=== PATIENT | female | born 1995 | race Caucasian/White ===

== ENCOUNTER 2016-07-13 19:52 | Emergency (ER) | payer BC ==
[~2016-07-13] VITALS: Ht 152.4 cm; Wt 55.2 kg
[~2016-07-13 19:52] MED LIST: BACT800T5 PO; HYDR-3533 PO; IBUP-232 PO; TAMS5CAP PO; ZOFR4TAB3 SL
[2016-07-13 23:35] VITALS: BP 132/93; PULSE 93; RESP 20; TEMP 97.7; O2SAT 98
--- NOTE | 2016-07-13 23:56 | PD ---
HPI Chief Complaint: Abdominal Pain Time Seen by Provider: 23:53 Travel History International Travel<30 days: No Contact w/Intl Traveler<30days: No Traveled to known affect area: No History of Present Illness HPI The patient is a 20-year-old female complains of bilateral flank pain, left greater than right along with nausea and vomiting for 2 days. She does have a fever at home. She states her urine smells foul and is cloudy. She has both a history of kidney stones and kidney infections. She states she cannot be she had a recent home test that was negative and her last menstrual period was normal 3 weeks ago. She does not have a local primary care physician, she just moved from [place]. [facility] Past Medical History Diminished Hearing: No Medical other: Yes (kidney stones) Tetanus Vaccination: Unknown Influenza Vaccination: No ?: Not LMP: 07/13/16 : 0 Social History Alcohol Use: No Tobacco Use: Yes (1 ppd) Substance Use: Yes Allergies-Medications (Allergen,Severity, Reaction): Coded Allergies: No Known Allergies (Unverified , 07/13/16) Reported Meds & Prescriptions Reported Meds & Active Scripts Active Phenergan (Promethazine HCl) 25 Mg Tab 25 Mg PO Q6H PRN Macrobid (Nitrofurantoin Monoh/Nitrofur Macro) 100 Mg Cap 100 Mg PO BID 10 Days Review of Systems Except as stated in HPI: all other systems reviewed are Neg Physical Exam Narrative GENERAL: The patient is alert, oriented 3 in moderate apparent distress with her left flank pain. Her vital signs show pulse 93 with blood pressure 132/93 but otherwise normal. SKIN: Focused skin assessment warm/dry. HEAD: Atraumatic. Normocephalic. EYES: Pupils equal and round. No scleral icterus. No injection or drainage. ENT: No nasal bleeding or discharge. Mucous membranes pink and moist. NECK: Trachea midline. No JVD. CARDIOVASCULAR: Regular rate and rhythm. No murmur appreciated. RESPIRATORY: No accessory muscle use. Clear to auscultation. Breath sounds equal bilaterally. GASTROINTESTINAL: Abdomen soft, with tenderness over both flanks, left greater than right and also some discomfort over the suprapubic area midline to direct palpation, nondistended. Hepatic and splenic margins not palpable. No guarding or rebound is present. MUSCULOSKELETAL: No obvious deformities. No clubbing. No cyanosis. No edema. NEUROLOGICAL: Awake and alert. No obvious cranial nerve deficits. Motor grossly within normal limits. Normal speech. PSYCHIATRIC: Appropriate mood and affect; insight and judgment normal. Data Data Last Documented VS Vital Signs Date Time Temp Pulse Resp B/P Pulse Ox O2 Delivery O2 Flow Rate FiO2 07/13/16 23:38 20 07/13/16 23:35 97.7 93 132/93 98 Orders Complete Blood Count With Diff (07/13/16 23:57) Comprehensive Metabolic Panel (07/13/16 23:57) Lactic Acid Sepsis Protocol (07/13/16 23:57) Urinalysis - C+S If Indicated (07/13/16 23:57) Blood Culture (07/13/16 23:57) Ecg Monitoring (07/13/16:57) Iv Access Insert/Monitor (07/13/16 23:57) Oximetry (07/13/16 23:57) Oxygen Administration (07/13/16 23:57) Ondansetron Inj (Zofran Inj) (07/14/16 00:00) Sodium Chlor 0.9% 1000 Ml Inj (Ns 1000 M (07/13/16 23:57) Sodium Chlor 0.9% 1000 Ml Inj (Ns 1000 M (07/13/16 23:57) Urine Culture (07/14/16 00:00) Ceftriaxone Inj (Rocephin Inj) (07/14/16 01:15) Ketorolac Inj (Toradol Inj) (07/14/16 01:15) Nitrofurantoin Monohyd Macrocr (Macrobid (07/14/16 01:15) Ondansetron Inj (Zofran Inj) (07/14/16 01:30) Labs Laboratory Tests Test 07/14/16 07/14/16 00:00 00:25 Urine Collection Type CLEAN CATCH Urine Color YELLOW Urine Turbidity SLIGHT Urine pH 6.0 Urine Specific [place] 1.006 Urine Protein NEG mg/dL Urine Glucose (UA) NEG mg/dL Urine Ketones NEG mg/dL Urine Occult Blood NEG Urine Nitrite NEG Urine Bilirubin NEG Urine Leukocyte Esterase TRACE Urine WBC 3-5 /hpf Urine Squamous Epithelial 0-5 /hpf Cells Urine Bacteria MANY /hpf Urine Mucus OCC /lpf Microscopic Urinalysis Comment CULTURE INDICATED White Blood Count 10.8 TH/MM3 Red Blood Count 4.78 MIL/MM3 Hemoglobin 13.9 GM/DL Hematocrit 40.8 % Mean Corpuscular Volume 85.5 FL Mean Corpuscular Hemoglobin 29.1 PG Mean Corpuscular Hemoglobin 34.1 % Concent Red Cell Distribution Width 12.6 % Platelet Count 235 TH/MM3 Mean Platelet Volume 8.4 FL Neutrophils (%) (Auto) 65.4 % Lymphocytes (%) (Auto) 19.6 % Monocytes (%) (Auto) 11.3 % Eosinophils (%) (Auto) 1.0 % Basophils (%) (Auto) 2.7 % Neutrophils # (Auto) 7.1 TH/MM3 Lymphocytes # (Auto) 2.1 TH/MM3 Monocytes # (Auto) 1.2 TH/MM3 Eosinophils # (Auto) 0.1 TH/MM3 Basophils # (Auto) 0.3 TH/MM3 CBC Comment DIFF FINAL Differential Comment MDM Medical Decision Making Medical Screen Exam Complete: Yes Emergency Medical Condition: Yes Medical Record Reviewed: Yes Interpretation(s) The CBC is normal. The urine shows trace leukocyte Estrace, negative blood and many bacteria and culture is indicated. There are 3-5 white cells present. Differential Diagnosis Urinary tract infection, kidney stones, gastritis, dehydration, electrolyte disorder, renal insufficiency Narrative Course The patient appears to have a pyelonephritis. This does not appear to be a kidney stone, there is no blood in the urine and she has bilateral flank pain. Sepsis Criteria SIRS Criteria (2 or more): Heart rate over 90 Diagnosis Primary Impression: Pyelonephritis Additional Instructions: As we discussed, it is important to increase your fluid intake to establish a good urine flow through your kidneys. It is hard to fight a urine infection unless you are very well-hydrated. Med/Other Pt SpecificInfo: Prescription(s) given Scripts Promethazine (Phenergan)25 Mg Tab25 Mg PO Q6H PRN (Nausea/Vomiting) #30 TAB Ref 0 Prov:Kemal Madsen MD 07/14/16 Nitrofurantoin Monohydrate Macrocrystals (Macrobid)100 Mg [id number] Mg PO BID 10 Days Ref 0 Prov:Kemal Madsen MD 07/14/16 Disposition: 01 DISCHARGE HOME Condition: Stable Kemal Madsen MD Jul 13, 2016 23:56
[2016-07-13] MEDS ORDERED: SODIUM CHLOR 0.9% 1000 ML INJ 800 ML IV ONE (23:57)
[2016-07-13] MEDS ORDERED: SODIUM CHLOR 0.9% 1000 ML INJ 1,000 ML IV ONE (23:57)
[2016-07-14] VITALS: BP 115/64; PULSE 88; RESP 20; O2SAT 99
[2016-07-14 00:27] LABS: BLOOD, URINE NEG (NEG); GLUCOSE,URINE NEG (NEG); KETONE, URINE NEG (NEG); NITRITE,URINE NEG (NEG)
[2016-07-14 00:44] LABS: METHOD OF COLLECTION CLEAN CATCH; URINE COLOR YELLOW (YELLW/STRAW)
[2016-07-14 00:45] LABS: BACTERIA, URINE MANY /hpf; COMMENT (UR) CULTURE INDICATED; CULTURE IF INDICATED CULTURE INDICATED; MUCUS URINE OCC /lpf (OCC); SQUAMOUS EPITHELIAL CELL URINE 0-5 /hpf (0-5)
[2016-07-14 00:53] LABS: AUTOMATED NEUTROPHIL # 7.1 TH/MM3 (1.8-7.7); BASOPHIL # 0.3 TH/MM3 (0-0.2); BASOPHIL % 2.7 % (0.0-2.0); EOSINOPHIL # 0.1 TH/MM3 (0-0.4); HEMATOCRIT 40.8 % (35.0-46.0); HEMO FLAGS DIFF FINAL; LYMPH % 19.6 % (9.0-44.0); LYMPHOCYTE # 2.1 TH/MM3 (1.0-4.8); MEAN CELL VOLUME 85.5 FL (80.0-100.0); MEAN CORPUSCULAR HEMOGLOBIN 29.1 PG (27.0-34.0); MEAN CORPUSCULAR HGB CONC 34.1 % (32.0-36.0); MONO % 11.3 % (0.0-8.0); NEUT % 65.4 % (16.0-70.0); PLATELET COUNT 235 TH/MM3 (150-450); RED BLOOD COUNT 4.78 MIL/MM3 (4.00-5.30); RED CELL DISTRIBUTION WIDTH 12.6 % (11.6-17.2); WHITE BLOOD COUNT 10.8 TH/MM3 (4.0-11.0)
[2016-07-14] MEDS ORDERED: MACR100C2 PO (01:08)
[2016-07-14] MEDS ORDERED: NITROFURANTOIN MONOHYD MACROCR 100 MG CAP PO ONE (01:15)
[2016-07-14] MEDS ORDERED: cefTRIAXone INJ 1,000 MG in SODIUM CHLORIDE 0.9% INJ 100 ML IV ONE (01:15)
[2016-07-14] MEDS ORDERED: KETOROLAC TROMETHAMINE 60 MG/2 ML (IM) VIAL IVP ONE (01:15)
[2016-07-14] MEDS ORDERED: PROM25TA5 PO (01:18)
[2016-07-14 01:30] VITALS: BP 119/76; PULSE 81; RESP 20; O2SAT 98
[2016-07-14] MEDS ORDERED: ONDANSETRON HCL 4 MG/2 ML VIAL IV ONE ×2 (01:30)
[2016-07-14 02:50] VITALS: BP 121/76
== END 2016-07-14 02:50 | disposition home or self-care (01) ==
LOC: PHED 19:52
DX: N12 Tubulo-interstitial nephritis, not specified as acute or chronic (principal); Z87.442 Personal history of urinary calculi; F17.210 Nicotine dependence, cigarettes, uncomplicated; B96.20 Unspecified Escherichia coli [E. coli] as the cause of diseases classified elsewhere
CPT/HCPCS: 81001; 85025; 87040; 87077; 87086; 87186; 96374; 96375; 96376; 99284; J0696; J1885; J2405; J7030

== ENCOUNTER 2017-03-01 03:27 | Emergency (ER) | payer BC ==
[~2017-03-01] VITALS: Ht 152.4 cm; Wt 63.4 kg
[~2017-03-01 03:27] MED LIST changes: -BACT800T5 PO; -HYDR-3533 PO; -IBUP-232 PO; +MACR100C2 PO; +PROM25TA5 PO; -TAMS5CAP PO; -ZOFR4TAB3 SL
[2017-03-01 03:36] VITALS: BP 134/67; PULSE 90; RESP 18; TEMP 97.8; O2SAT 99
[2017-03-01] MEDS ORDERED: BUPR8SUB SL (03:48)
[2017-03-01] MEDS ORDERED: PRENTAB7 PO (03:48)
[2017-03-01 04:03] LABS: BLOOD, URINE LARGE (NEG); GLUCOSE,URINE NEG (NEG); KETONE, URINE NEG (NEG); NITRITE,URINE POS (NEG); PH, URINE 6.5 (5.0-8.5)
[2017-03-01 04:18] LABS: METHOD OF COLLECTION CLEAN CATCH; URINE COLOR YELLOW (YELLW/STRAW)
[2017-03-01 04:19] LABS: WBC, URINE INNUM /hpf (0-5)
[2017-03-01 04:20] LABS: BACTERIA, URINE FEW /hpf; COMMENT (UR) CULTURE INDICATED; CULTURE IF INDICATED CULTURE INDICATED; SQUAMOUS EPITHELIAL CELL URINE 0-2 /hpf (0-5)
--- NOTE | 2017-03-01 04:29 | PD ---
HPI Chief Complaint: Related Problem Time Seen by Provider: 03:46 Travel History International Travel<30 days: No Contact w/Intl Traveler<30days: No Traveled to known affect area: No History of Present Illness HPI 21 year-old female presents to the emergency department for complaint of steady lower abdominal pain primarily left sided and left flank pain since around 7 PM this evening. Patient reports she is 1 para 0 AB 0. Patient is under the care of Dr. London. Patient was just seen by her EAR NOSE AND THROAT SPECIALIST 1 week ago at which time they did a catheter specimen for urine and she was told that she needed to have an outpatient culture done and to be started on antibiotic but they were waiting for the culture result as she probably had a urinary tract infection. Patient denies any abnormal vaginal discharge or abnormal vaginal bleeding. Patient has had an ultrasound by her EAR NOSE AND THROAT SPECIALIST and reportedly the has been normal. Patient has been told she is approximately 27 weeks . Last period was 06/26/16. Patient rates her pain 5/10. PFSH Past Medical History Narrative Medical prior substance use; tobacco use; lmp: 06/26/16 Medical History: Denies Significant Hx Diminished Hearing: No Immunizations Current: No Tetanus Vaccination: < 5 Years Influenza Vaccination: No ?: LMP: 06-26-16 APPROXIMATELY PER PT : 1 Para: 0 Past Surgical History Surgical History: No Previous Surgery Social History Alcohol Use: No Tobacco Use: Yes (2-3 PER DAY) Substance Use: Yes Allergies-Medications (Allergen,Severity, Reaction): Coded Allergies: No Known Allergies (Unverified Adverse Reaction, Unknown, 03/01/17) Reported Meds & Prescriptions Reported Meds & Active Scripts Active Reported Buprenorphine (Buprenorphine HCl) 8 Mg Subl 8 Mg SL DAILY Vitamins Tablet (Pnv No.95/Ferrous Fum/Folic AC) 28 Mg Iron-800 Mcg Tablet 1 Tab PO DAILY Review of Systems Except as stated in HPI: all other systems reviewed are Neg General / Constitutional: No: Fever, Chills HENT: No: Congestion Cardiovascular: No: Chest Pain or Discomfort Respiratory: No: Shortness of Breath Gastrointestinal: Positive: Abdominal Pain Genitourinary: Positive: Flank Pain, No: Pelvic Pain, Discharge, Vaginal Bleeding Musculoskeletal: No: Myalgias, Arthralgias Neurologic: No: Weakness Psychiatric: No: Anxiety Hematologic/Lymphatic: No: Lymph Node Enlargement Physical Exam Narrative GENERAL: Well-developed well-nourished female in no acute distress no respiratory distress SKIN: Warm and dry. HEAD: Normocephalic. EYES: No scleral icterus. No injection or drainage. NECK: Supple, trachea midline. No JVD or lymphadenopathy. CARDIOVASCULAR: Regular rate and rhythm without murmurs, gallops, or rubs. RESPIRATORY: Breath sounds equal bilaterally. No accessory muscle use. GASTROINTESTINAL: Abdomen soft, non-tender, nondistended. Fundal height one fingerbreadth above the umbilicus. Pelvic exam: External exam no induration redness or ulceration; speculum exam cervical os is closed no blood no clots no tissue noted; bimanual exam cervical os is closed patient notes increased uterine discomfort on bimanual exam. MUSCULOSKELETAL: No cyanosis, or edema. BACK: Nontender without obvious deformity. No CVA tenderness. Data Data Last Documented VS Vital Signs Date Time Temp Pulse Resp B/P (MAP) Pulse Ox O2 Delivery O2 Flow Rate FiO2 03/01/17 04:54 98.5 81 15 133/75 (94) 100 Room Air Orders Orders Urinalysis - C+S If Indicated (03/01/17 03:46) Urine Culture (03/01/17 03:55) Acetaminophen (Tylenol) (03/01/17 04:45) Cephalexin (Keflex) (03/01/17 04:45) Diet Npo Except Meds (03/01/17 Breakfast) ^ Saline Lock (03/01/17 05:17) Complete Blood Count With Diff (03/01/17 05:17) Complete Rh (03/01/17 05:17) Basic Metabolic Panel (Bmp) (03/01/17 05:17) Labs Laboratory Tests Test 03/01/17 03:55 Urine Collection Type CLEAN CATCH Urine Color YELLOW Urine Turbidity CLOUDY Urine pH 6.5 Urine Specific [place] 1.015 Urine Protein 100 mg/dL Urine Glucose (UA) NEG mg/dL Urine Ketones NEG mg/dL Urine Occult Blood LARGE Urine Nitrite POS Urine Bilirubin NEG Urine Leukocyte Esterase MOD Urine WBC INNUM /hpf Urine WBC Clumps FEW Urine Squamous Epithelial Cells 0-2 /hpf Urine Bacteria FEW /hpf Microscopic Urinalysis Comment CULTURE INDICATED MDM Medical Decision Making Medical Screen Exam Complete: Yes Emergency Medical Condition: Yes Medical Record Reviewed: Yes Interpretation(s) Urinalysis: Positive leukocyte Estrace positive nitrites positive white blood cells clumped white blood cells bacteria cultures indicated Differential Diagnosis Premature labor UTI broad ligament pain Narrative Course Urine specimen collected bedside ultrasound identifies an intrauterine with good heart beat of 148 Urinalysis: Positive for nitrites white blood cells clumped and bacteria cultures indicated; will administer first dose of antibiotic keflex and for pain acetaminophen; o/w will be kept npo except for medications discussed patient with OB ED re: monitoring Patient informed that she will be sent by ambulance for monitoring @ 05:50 patient has decided to leave AMA; AMA: The risks of leaving against medical advice without further evaluation treatment were discussed with the patient. These risks include cardiac dysfunction, cardiac dysrhythmia, possible heart attack, possible stroke, injury or . The patient indicated understanding of these risks and appeared to have the capacity to make this decision. Patient is aware ambulance is here to transport her to [facility] ED at this time and still refuses transport for monitoring and further evaluation. Physician Communication Physician Communication discussed with Dr Kelsey --will accept for monitoring by ambulance to [facility] OB ED Diagnosis Primary Impression: Abdominal pain affecting Additional Impressions: UTI (urinary tract infection) Qualified Codes: Z3A.27 - 27 weeks gestation of Left against medical advice Disposition: 07 AGAINST MEDICAL ADVICE Condition: Stable Iesha Kidd MD Mar 01, 2017 04:29
[2017-03-01] MEDS ORDERED: CEPHALEXIN MONOHYDRATE 500 MG CAP PO ONE (04:45)
[2017-03-01] MEDS ORDERED: ACETAMINOPHEN 325 MG TAB PO ONE (04:45)
[2017-03-01 04:54] VITALS: BP 133/75; PULSE 81; RESP 15; TEMP 98.5; O2SAT 100
== END 2017-03-01 06:08 | disposition left against medical advice (07) ==
LOC: PHED 03:27
DX: O23.42 Unspecified infection of urinary tract in pregnancy, second trimester (principal); B96.20 Unspecified Escherichia coli [E. coli] as the cause of diseases classified elsewhere; Z3A.27 27 weeks gestation of pregnancy
CPT/HCPCS: 81001; 87077; 87086; 87186; 99283

== ENCOUNTER 2017-05-15 08:37 | Inpatient (IN) | payer BC ==
[~2017-05-15] VITALS: Ht 152.4 cm; Wt 68.0 kg
[~2017-05-15 08:37] MED LIST changes: +BUPR8SUB SL; -MACR100C2 PO; +PRENTAB7 PO; -PROM25TA5 PO
[2017-05-15] MEDS ORDERED: BUPR8SUB SL (09:10)
--- NOTE | 2017-05-15 10:06 | PD ---
HPI Chief Complaint vaginal bleeding 37 weeks and 5 days Date Seen: May 15, 2017 Time Seen: 09:30 Travel History International Travel<30 Days: No Contact w/Intl Traveler<30Days: No Known Affected Area: No History of Present Illness HPI Pt is a 21 yo at 37 weeks and [address] London. EDC 2- Pt states she was woken up this morning with vaginal bleeding. Denies any abdominal pain. Active bleeding Pt states she has low-lying placenta earlier in the but was told had resolved and there was no contraindication to vaginal delivery. Denies recent SI. She denies any bleeding elsewhere. Pt is in recovery on SUBOTEX. Weeks Gestation: 37 Para: 0 : 1 History Past Medical History Narrative Medical history of substance abuse, in recovery, on Subotex Obstetric History Obstetric History Primigravida Past Surgical History Surgical History: No Previous Surgery Family History Family History: Negative Social History Alcohol Use: No Tobacco Use: No Substance Abuse: No (on Subotex) Allergies-Medications (Allergen,Severity, Reaction): Coded Allergies: No Known Allergies (Unverified Adverse Reaction, Unknown, 03/01/17) Home Meds Reported Medications Buprenorphine (Buprenorphine) 8 Mg Subl, 8 MG SL, TAB.SL 05/15/17 Buprenorphine (Buprenorphine) 8 Mg Subl, 8 MG SL DAILY, TAB.SL 03/01/17 Pnv No.95/Ferrous Fum/Folic AC ( Vitamins Tablet) 28 Mg Iron-800 Mcg Tablet, 1 TAB PO DAILY 03/01/17 Review of Systems Except as stated in HPI: all other systems reviewed are Neg Physical Exam Narrative GENERAL: Well-nourished, well-developed patient. SKIN: Warm and dry. HEAD: Normocephalic and atraumatic. EYES: No scleral icterus. No injection or drainage. ENT: No nasal drainage noted. Mucous membranes pink. Airway patent. NECK: Supple, trachea midline. No JVD. CARDIOVASCULAR: Regular rate and rhythm without murmurs, gallops, or rubs. RESPIRATORY: Breath sounds equal bilaterally. No accessory muscle use. BREASTS: Bilateral exam showed no masses , no retractions, no nipple discharge. ABDOMEN/GI: Abdomen soft, NON TENDER, bowel sounds present, no rebound, no guarding Gravid to [37] weeks size Fundal Height: [-] GENITOURINARY: External Genitalia: intact and normal in appearance BUS glands: [wnl] Cervix: [soft] Dilatation: [closed] SSE: dark blood pool in posterior fornix, no ongoing blood from os. Effacement: [uneffaced] Station: [0] Presentation: [vertex] Membranes: [intact] Uterine Contractions: [2-3 minutes] FHT's: Category: [1] Baseline: [130s] Reactive: [-] Variability: [moderate] Decels: [none] EXTREMITIES: No cyanosis or edema. BACK: Nontender without obvious deformity. No CVA tenderness. NEUROLOGICAL: Awake and alert. Motor and sensory grossly within normal limits. Five out of 5 muscle strength in all muscle groups. Normal speech. Data Data Vital Signs Reviewed: Yes Orders Orders Complete Blood Count With Diff (05/15/17 08:58) Ob Poc Ultrasound (05/15/17 ) Us Ob Limited (05/15/17 ) Vascular Access Team Consult/P PRN (05/15/17 09:51) Vascular Poc Ultrasound (05/15/17 ) MDM Plan Pt is a 21 yo at 37 weeks and 4 days. Pt presents with 3rd trimester bleeding. Denies any abdominal pain. Active movements. Vaginal bleeding confirmed and cervix evacuated on SSE. SVE confirms cervix closed Ultrasound ordered. Check CBC US wnl, no previa, no retroplacental clot, BPP 8/8. status reassuring Bleeding resolved. D/W Dr London. Will admit for observation. Diagnosis Diagnosis: Primary Impression: 37 weeks gestation of Additional Impression: Antepartum bleeding, third trimester Grabiel Monroe MD May 15, 2017 10:05
--- NOTE | 2017-05-15 10:24 | HHI.HP ---
HPI Chief Complaint 37 weeks and 5 days Vaginal bleed Date Seen: May 15, 2017 Time Seen: 06:30 Travel History International Travel<30 Days: No Contact w/Intl Traveler<30Days: No Known Affected Area: No History of Present Illness HPI Pt is a 21 yo at 37 weeks and [address] London. EDC 06-01-2017 Pt states she was woken up this morning with vaginal bleeding. Denies any abdominal pain. Active bleeding Pt states she has low-lying placenta earlier in the but was told had resolved and there was no contraindication to vaginal delivery. Denies recent SI. She denies any bleeding elsewhere. Pt is in recovery on SUBOTEX. Ultrasound wnl, BPP 8/, JEANNE 16. No retroplacental hematoma, or previa. Bleeding has resolved , but pt noted to have contractions about every 3 minutes. Pt has no abdominal pain. Weeks Gestation: 37 Para: 0 : 1 History Past Medical History Narrative Medical h/o substance abuse, in recovery. On Subotex Obstetric History Obstetric History primigravida Past Surgical History Surgical History: No Previous Surgery Family History Family History: Negative Social History Alcohol Use: No Tobacco Use: Yes Substance Abuse: No (on Subotex) Allergies-Medications (Allergen,Severity, Reaction): Coded Allergies: No Known Allergies (Unverified Adverse Reaction, Unknown, 03/01/17) Home Meds Reported Medications Buprenorphine (Buprenorphine) 8 Mg Subl, 8 MG SL, TAB.SL 05/15/17 Buprenorphine (Buprenorphine) 8 Mg Subl, 8 MG SL DAILY, TAB.SL 03/01/17 Pnv No.95/Ferrous Fum/Folic AC ( Vitamins Tablet) 28 Mg Iron-800 Mcg Tablet, 1 TAB PO DAILY 03/01/17 Review of Systems Except as stated in HPI: all other systems reviewed are Neg Physical Exam Narrative GENERAL: Well-nourished, well-developed patient. SKIN: Warm and dry. HEAD: Normocephalic and atraumatic. EYES: No scleral icterus. No injection or drainage. ENT: No nasal drainage noted. Mucous membranes pink. Airway patent. NECK: Supple, trachea midline. No JVD. CARDIOVASCULAR: Regular rate and rhythm without murmurs, gallops, or rubs. RESPIRATORY: Breath sounds equal bilaterally. No accessory muscle use. BREASTS: Bilateral exam showed no masses , no retractions, no nipple discharge. ABDOMEN/GI: Abdomen soft, non-tender, bowel sounds present, no rebound, no guarding Gravid to [37] weeks size Fundal Height: [-] GENITOURINARY: External Genitalia: intact and normal in appearance BUS glands: [wnl] Cervix: [soft] Dilatation: [closed] Effacement: [uneffaced] Station: [-2] Presentation: [-] Membranes: [intact o] Uterine Contractions: [2-3 minutes] FHT's: Category: [1] Baseline: [130s] Reactive: [-] Variability: [moderate] Decels: [none] EXTREMITIES: No cyanosis or edema. BACK: Nontender without obvious deformity. No CVA tenderness. NEUROLOGICAL: Awake and alert. Motor and sensory grossly within normal limits. Five out of 5 muscle strength in all muscle groups. Normal speech. Caprini VTE Risk Assessment Caprini VTE Risk Assessment: No/Low Risk (score <= 1) Caprini Risk Assessment Model Point Value = 1 Point Value = 2 Point Value = 3 Point Value = 5 Age 41-60 Minor surgery BMI > 25 kg/m2 Swollen legs Varicose veins or History of unexplained or recurrent spontaneous Oral contraceptives or hormone replacement Sepsis (< 1 month) Serious lung disease, including pneumonia (< 1 month) Abnormal pulmonary function Acute myocardial infarction Congestive heart failure (< 1 month) History of inflammatory bowel disease Medical patient at bed rest Age 61-74 Arthroscopic surgery Major open surgery (> 45 min) Laparoscopic surgery (> 45 min) Malignancy Confined to bed (> 72 hours) Immobilizing plaster cast Central venous access Age >= 75 History of VTE Family history of VTE Factor V Leiden Prothrombin [id number] Lupus anticoagulant Anticardiolipin antibodies Elevated serum homocysteine Heparin-induced thrombocytopenia Other congenital or acquired thrombophilia Stroke (< 1 month) Elective arthroplasty Hip, pelvis, or leg fracture Acute spinal cord injury (< 1 month) Prophylaxis Regimen Total Risk Factor Score Risk Level Prophylaxis Regimen 0-1 Low Early ambulation 2 Moderate Order ONE of the following: *Sequential Compression Device (SCD) *Heparin 5000 units SQ BID 3-4 Higher Order ONE of the following medications: *Heparin 5000 units SQ TID *Enoxaparin/Lovenox 40 mg SQ daily (WT < 150 kg, CrCl > 30 mL/min) *Enoxaparin/Lovenox 30 mg SQ daily (WT < 150 kg, CrCl > 10-29 mL/min) *Enoxaparin/Lovenox 30 mg SQ BID (WT < 150 kg, CrCl > 30 mL/min) AND/OR *Sequential Compression Device (SCD) 5 or more Highest Order ONE of the following medications: *Heparin 5000 units SQ TID (Preferred with Epidurals) *Enoxaparin/Lovenox 40 mg SQ daily (WT < 150 kg, CrCl > 30 mL/min) *Enoxaparin/Lovenox 30 mg SQ daily (WT < 150 kg, CrCl > 10-29 mL/min) *Enoxaparin/Lovenox 30 mg SQ BID (WT < 150 kg, CrCl > 30 mL/min) AND *Sequential Compression Device (SCD) Data Data Vital Signs Reviewed: Yes Orders Orders Complete Blood Count With Diff (05/15/17 08:58) Ob Poc Ultrasound (05/15/17 ) Us Ob Limited (05/15/17 ) Vascular Access Team Consult/P PRN (05/15/17 09:51) Vascular Poc Ultrasound (05/15/17 ) Vascular Access Team Consult/P PRN (05/15/17 09:46) Ob (2e) Additional Admit Info (05/15/17 10:04) Assessment/Plan Assessment and Plan Pt is a 21 yo at 37 weeks and 5 days with vaginal bleeding. Bleeding has resolved Pt of Dr London, pt on Subotex. Pt has normal US status reassuring. Pt has irregular contractions. D/W dr London, will admit for observation. Grabiel Monroe MD May 15, 2017 10:24
[2017-05-15 10:54] LABS: AUTOMATED NEUTROPHIL # 13.7 TH/MM3 (1.8-7.7); BASOPHIL # 0.1 TH/MM3 (0-0.2); BASOPHIL % 0.3 % (0.0-2.0); EOSINOPHIL # 0.1 TH/MM3 (0-0.4); EOSINOPHIL % 0.3 % (0.0-4.0); HEMOGLOBIN 11.9 GM/DL (11.6-15.3); LYMPH % 18.5 % (9.0-44.0); LYMPHOCYTE # 3.4 TH/MM3 (1.0-4.8); MEAN CELL VOLUME 87.3 FL (80.0-100.0); MEAN CORPUSCULAR HEMOGLOBIN 29.6 PG (27.0-34.0); MEAN CORPUSCULAR HGB CONC 33.9 % (32.0-36.0); MEAN PLATELET VOLUME 9.4 FL (7.0-11.0); MONO % 7.3 % (0.0-8.0); MONOCYTE # 1.3 TH/MM3 (0-0.9); NEUT % 73.6 % (16.0-70.0); PLATELET COUNT 239 TH/MM3 (150-450); RED BLOOD COUNT 4.01 MIL/MM3 (4.00-5.30); RED CELL DISTRIBUTION WIDTH 13.6 % (11.6-17.2); WHITE BLOOD COUNT 18.6 TH/MM3 (4.0-11.0)
[2017-05-15 11:19] LABS: ALBUMIN 2.9 GM/DL (3.4-5.0); ALT (GPT) 135 U/L (10-53); AST (GOT) 142 U/L (15-37); BICARBONATE 24.6 MEQ/L (21.0-32.0); BLOOD UREA NITROGEN 6 MG/DL (7-18); CHLORIDE 104 MEQ/L (98-107); CREATININE 0.56 MG/DL (0.50-1.00); GLOMERULAR FILTRATION RATE 134 ML/MIN (>89); GLUCOSE,RANDOM 79 MG/DL (74-106); SODIUM (NA) 139 MEQ/L (136-145)
[2017-05-15] MEDS ORDERED: LACTATED RINGER'S 1000 ML INJ 1,000 ML IV SCH ×2 (11:20→16:15)
[2017-05-15 11:21] LABS: ALKALINE PHOSPHATASE 289 U/L (45-117); TOTAL PROTEIN 7.3 GM/DL (6.4-8.2)
[2017-05-15 12:16] LABS: BILIRUBIN, URINE NEG (NEG); BLOOD, URINE NEG (NEG); GLUCOSE,URINE NEG (NEG); KETONE, URINE NEG (NEG); MUCUS URINE FEW /lpf (OCC); NITRITE,URINE NEG (NEG); PH, URINE 7.5 (5.0-8.5); SQUAMOUS EPITHELIAL CELL URINE <1 /hpf (0-5); URINE COLOR YELLOW (YELLW/STRAW); URINE LEUKOCYTE ESTERASE NEG (NEG)
[2017-05-15] MEDS: NICOTINE 14 MG/24 HR PATCH T-DERMAL SCH (16:03)
[2017-05-15] MEDS ORDERED: ACETAMINOPHEN 325 MG TAB PO ONE (18:15)
[2017-05-15] MEDS ORDERED: LORazepam 1 MG TAB PO PRN (18:15)
[2017-05-15] MEDS ORDERED: PROMETHAZINE HCL 25 MG TAB PO ONE (18:15)
[2017-05-15] MEDS: BUPRENORPHINE HCL 8 MG SUBLINGUAL TAB SL SCH (21:00)
[2017-05-15] MEDS ORDERED: REMOVE OLD NICODERM (NICOTINE) PATCH T-DERMAL SCH (21:00)
[2017-05-15] MEDS: SODIUM CHLORIDE 0.9% FLUSH 10 ML FLUSH IV FLUSH SCH (21:00)
[2017-05-16] VITALS (27 sets, daily range): BP systolic 107–142; BP diastolic 58–91; PULSE 48–75; RESP 16–18; TEMP 98.1–98.5
[2017-05-16] MEDS: SODIUM CHLORIDE 0.9% FLUSH 10 ML FLUSH IV FLUSH SCH ×2 (08:20→09:00)
[2017-05-16] MEDS: BUPRENORPHINE HCL 8 MG SUBLINGUAL TAB SL SCH ×2 (08:20→21:00)
--- NOTE | 2017-05-16 08:25 | HHI.HP ---
HPI Chief Complaint active bleeding painless yesterday at 37 5/7 weeks IUP subutuex maintenance treatment with excellent compliance and good care Date Seen: May 16, 2017 Time Seen: 08:18 Travel History International Travel<30 Days: No Contact w/Intl Traveler<30Days: No Known Affected Area: No History of Present Illness HPI 21 yo swf G1 at 37/6/7 today with good PNC at [facility]. Came in to ED yesterday with painless brisk bleeding and no dilation. Had a previa in the early part of gestation which appeared to resolve on subsequent sonogram. Started on subutex maintenance early in with UDS monthly and 12 step support. Compliant and no GDM or PTL. Mild elevation of blood pressure in office to 80's diastolic with ocassionaly 90 diastolic. She is hep C+ surveilance reassuring and no signs of distress of IUGR. LFTS elevated either due to atypical pre clampsia or her hep C+ No VERDUGO, blurred vision or RUQT. GFM. She has a poor bishops score but should be induced based on office blood pressures, LFTs and question of etiology of bleeding (could placenta have a tiny extention near os that is missed on sonogram?) History Past Medical History Medical History: Denies Significant Hx Obstetric History Obstetric History G1 Past Surgical History Surgical History: No Previous Surgery Family History Family History: Negative Social History Alcohol Use: No Tobacco Use: Yes Substance Abuse: Yes Allergies-Medications (Allergen,Severity, Reaction): Coded Allergies: No Known Allergies (Unverified Allergy, Unknown, 05/15/17) Home Meds Reported Medications Buprenorphine (Buprenorphine) 8 Mg Subl, 8 MG SL, TAB.SL 05/15/17 Buprenorphine (Buprenorphine) 8 Mg Subl, 8 MG SL DAILY, TAB.SL 03/01/17 Pnv No.95/Ferrous Fum/Folic AC ( Vitamins Tablet) 28 Mg Iron-800 Mcg Tablet, 1 TAB PO DAILY 03/01/17 Physical Exam Does not appear overly edematous Narrative GENERAL: Well-nourished, well-developed patient. SKIN: Warm and dry. HEAD: Normocephalic and atraumatic. EYES: No scleral icterus. No injection or drainage. ENT: No nasal drainage noted. Mucous membranes pink. Airway patent. NECK: Supple, trachea midline. No JVD. CARDIOVASCULAR: Regular rate and rhythm without murmurs, gallops, or rubs. RESPIRATORY: Breath sounds equal bilaterally. No accessory muscle use. BREASTS: Bilateral exam showed no masses , no retractions, no nipple discharge. ABDOMEN/GI: Abdomen soft, non-tender, bowel sounds present, no rebound, no guarding term fundus vertex EFW is 7 pelvis is clincially adequate long/closed/anteror /soft EXTREMITIES: No cyanosis trace edema and normoreflexic BACK: Nontender without obvious deformity. No CVA tenderness. NEUROLOGICAL: Awake and alert. Motor and sensory grossly within normal limits. Five out of 5 muscle strength in all muscle groups. Normal speech. Caprini VTE Risk Assessment Caprini VTE Risk Assessment: No/Low Risk (score <= 1) Caprini Risk Assessment Model Point Value = 1 Point Value = 2 Point Value = 3 Point Value = 5 Age 41-60 Minor surgery BMI > 25 kg/m2 Swollen legs Varicose veins or History of unexplained or recurrent spontaneous Oral contraceptives or hormone replacement Sepsis (< 1 month) Serious lung disease, including pneumonia (< 1 month) Abnormal pulmonary function Acute myocardial infarction Congestive heart failure (< 1 month) History of inflammatory bowel disease Medical patient at bed rest Age 61-74 Arthroscopic surgery Major open surgery (> 45 min) Laparoscopic surgery (> 45 min) Malignancy Confined to bed (> 72 hours) Immobilizing plaster cast Central venous access Age >= 75 History of VTE Family history of VTE Factor V Leiden Prothrombin 44999D Lupus anticoagulant Anticardiolipin antibodies Elevated serum homocysteine Heparin-induced thrombocytopenia Other congenital or acquired thrombophilia Stroke (< 1 month) Elective arthroplasty Hip, pelvis, or leg fracture Acute spinal cord injury (< 1 month) Prophylaxis Regimen Total Risk Factor Score Risk Level Prophylaxis Regimen 0-1 Low Early ambulation 2 Moderate Order ONE of the following: *Sequential Compression Device (SCD) *Heparin 5000 units SQ BID 3-4 Higher Order ONE of the following medications: *Heparin 5000 units SQ TID *Enoxaparin/Lovenox 40 mg SQ daily (WT < 150 kg, CrCl > 30 mL/min) *Enoxaparin/Lovenox 30 mg SQ daily (WT < 150 kg, CrCl > 10-29 mL/min) *Enoxaparin/Lovenox 30 mg SQ BID (WT < 150 kg, CrCl > 30 mL/min) AND/OR *Sequential Compression Device (SCD) 5 or more Highest Order ONE of the following medications: *Heparin 5000 units SQ TID (Preferred with Epidurals) *Enoxaparin/Lovenox 40 mg SQ daily (WT < 150 kg, CrCl > 30 mL/min) *Enoxaparin/Lovenox 30 mg SQ daily (WT < 150 kg, CrCl > 10-29 mL/min) *Enoxaparin/Lovenox 30 mg SQ BID (WT < 150 kg, CrCl > 30 mL/min) AND *Sequential Compression Device (SCD) Data Data Orders Orders Complete Blood Count With Diff (05/15/17 08:58) Ob Poc Ultrasound (05/15/17 ) Us Ob Limited (05/15/17 ) Vascular Access Team Consult/P PRN (05/15/17 09:51) Vascular Poc Ultrasound (05/15/17 ) Vascular Access Team Consult/P PRN (05/15/17 09:46) Ob (2e) Additional Admit Info (05/15/17 10:04) Diet Regular Basic (05/15/17 Lunch) Comprehensive Metabolic Panel (05/15/17 10:55) Uric Acid (05/15/17 10:55) Specimen To Be Collected PRN (05/15/17 10:55) Protein Creat Ratio, Random Ur (05/15/17 10:55) Instruction (05/15/17 10:55) Instruction (05/15/17 10:55) Ob/Psych Drug Screen, Urine (05/15/17 11:27) Urinalysis - C+S If Indicated (05/15/17 11:28) ^ Discontinue (05/15/17 14:51) Instruction (05/15/17 14:51) Lactated Ringer's 1000 Ml Inj (Lr 1000 M (05/15/17 11:20) Nicotine 14 Mg Patch.24 Hr (Habitrol 14 (05/15/17 17:00) Remove Old Patch (05/15/17 21:00) Buprenorphine (Buprenorphine) (05/15/17 21:00) Lactated Ringer's 1000 Ml Inj (Lr 1000 M (05/15/17 16:15) Acetaminophen (Tylenol) (05/15/17 18:15) Promethazine (Phenergan) (05/15/17 18:15) Lorazepam (Ativan) (05/15/17 18:15) Sodium Chloride 0.9% Flush (Ns Flush) (05/15/17 21:00) Labs Laboratory Tests Test 05/15/17 10:10 05/15/17 11:35 White Blood Count 18.6 Red Blood Count 4.01 Hemoglobin 11.9 Hematocrit 35.0 Mean Corpuscular Volume 87.3 Mean Corpuscular Hemoglobin 29.6 Mean Corpuscular Hemoglobin Concent 33.9 Red Cell Distribution Width 13.6 Platelet Count 239 Mean Platelet Volume 9.4 Neutrophils (%) (Auto) 73.6 Lymphocytes (%) (Auto) 18.5 Monocytes (%) (Auto) 7.3 Eosinophils (%) (Auto) 0.3 Basophils (%) (Auto) 0.3 Neutrophils # (Auto) 13.7 Lymphocytes # (Auto) 3.4 Monocytes # (Auto) 1.3 Eosinophils # (Auto) 0.1 Basophils # (Auto) 0.1 CBC Comment DIFF FINAL Differential Comment Blood Urea Nitrogen 6 Creatinine 0.56 Random Glucose 79 Total Protein 7.3 Albumin 2.9 Calcium Level 9.0 Uric Acid 5.7 Alkaline Phosphatase 289 Aspartate Amino Transf (AST/SGOT) 142 Alanine Aminotransferase (ALT/SGPT) 135 Total Bilirubin 1.0 Sodium Level 139 Potassium Level 3.4 Chloride Level 104 Carbon Dioxide Level 24.6 Anion Gap 10 Estimat Glomerular Filtration Rate 134 Urine Color YELLOW Urine Turbidity CLEAR Urine pH 7.5 Urine Specific [place] 1.008 Urine Protein NEG Urine Glucose (UA) NEG Urine Ketones NEG Urine Occult Blood NEG Urine Nitrite NEG Urine Bilirubin NEG Urine Urobilinogen LESS THAN 2.0 Urine Leukocyte Esterase NEG Urine RBC LESS THAN 1 Urine WBC 1 Urine Squamous Epithelial Cells <1 Urine Mucus FEW Microscopic Urinalysis Comment CATH-CULT NOT IND Urine Random Creatinine 48 Urine Random Total Protein 7 Urine Protein/Creatinine Ratio 0.15 Urine Opiates Screen NEG Urine Barbiturates Screen NEG Urine Amphetamines Screen NEG Urine Benzodiazepines Screen NEG Urine Cocaine Screen NEG Urine Cannabinoids Screen NEG Assessment/Plan Assessment and Plan Pt is a 21 yo at 37 weeks and 5 days with vaginal bleeding. Bleeding has resolved Pt of Dr London, pt on Subotex. Pt has normal US status reassuring. Pt has irregular contractions. D/W dr London, will admit for observation. 05/16/17 8:00 decision to induce based on above criteria. will proceed and discuss all events with Africa Knapp MD May 16, 2017 08:25
[2017-05-16] MEDS ORDERED: SODIUM CHLORIDE 0.9% FLUSH 10 ML FLUSH IV FLUSH PRN (08:30)
[2017-05-16] MEDS ORDERED: DINOPROSTONE 10 MG VAG INSERT VAGINAL ONE (09:00)
[2017-05-16 13:26] LABS: WHITE BLOOD COUNT 12.9 TH/MM3 (4.0-11.0)
[2017-05-16 13:27] LABS: AUTOMATED NEUTROPHIL # 8.6 TH/MM3 (1.8-7.7); BASOPHIL % 0.3 % (0.0-2.0); EOSINOPHIL # 0.1 TH/MM3 (0-0.4); EOSINOPHIL % 0.7 % (0.0-4.0); HEMATOCRIT 34.2 % (35.0-46.0); HEMOGLOBIN 11.7 GM/DL (11.6-15.3); LYMPH % 25.9 % (9.0-44.0); LYMPHOCYTE # 3.3 TH/MM3 (1.0-4.8); MEAN CELL VOLUME 87.4 FL (80.0-100.0); MEAN CORPUSCULAR HEMOGLOBIN 29.9 PG (27.0-34.0); MEAN CORPUSCULAR HGB CONC 34.2 % (32.0-36.0); MEAN PLATELET VOLUME 9.7 FL (7.0-11.0); MONO % 6.3 % (0.0-8.0); MONOCYTE # 0.8 TH/MM3 (0-0.9); NEUT % 66.8 % (16.0-70.0); PLATELET COUNT 236 TH/MM3 (150-450); RED BLOOD COUNT 3.91 MIL/MM3 (4.00-5.30); RED CELL DISTRIBUTION WIDTH 13.4 % (11.6-17.2)
[2017-05-16 13:38] LABS: ALBUMIN 2.7 GM/DL (3.4-5.0); DIRECT BILIRUBIN ADULT 0.3 MG/DL (0.0-0.2)
[2017-05-16 13:40] LABS: INDIRECT BILIRUBIN 0.5 MG/DL (0.0-0.8); TOTAL BILIRUBIN ADULT 0.8 MG/DL (0.2-1.0); TOTAL PROTEIN 6.9 GM/DL (6.4-8.2)
[2017-05-16] MEDS ORDERED: LACTATED RINGER'S 1000 ML BOLUS IV PRN (17:00)
[2017-05-16] MEDS ORDERED: LIDOCAINE HCL 1% 50 ML VIAL INFIL PRN (17:00)
[2017-05-16] MEDS ORDERED: CITRIC ACID-SODIUM CITRATE LIQ 30 ML UDC PO SCH (17:00)
[2017-05-16] MEDS ORDERED: LIDOCAINE HCL 1% 50 ML VIAL I-DERMAL PRN (17:00)
[2017-05-16] MEDS ORDERED: NS 1000 ML IV PRN (17:00)
[2017-05-16] MEDS ORDERED: OXYTOCIN 30 UNITS 500ML PREMIX IV ONE (17:00)
[2017-05-16] MEDS ORDERED: MINERAL OIL 10 ML VIAL TOPICAL PRN (17:00)
[2017-05-16] MEDS: NICOTINE 14 MG/24 HR PATCH T-DERMAL SCH (17:00)
[2017-05-16] MEDS ORDERED: NS 500 ML BOLUS IV PRN (17:00)
[2017-05-16] MEDS: LACTATED RINGER'S 1000 ML IV SCH (18:38)
[2017-05-16] MEDS ORDERED: fentaNYL 2MCG-BUPIV 0.125% INJ 100 ML ONE (18:51)
[2017-05-16] MEDS ORDERED: OXYTOCIN 30 UNITS/NS 500ML PREMIX IV PRN (19:15)
[2017-05-16] MEDS ORDERED: LIDOCAINE 2% JELLY 5 ML TUBE OTHER ONE (20:45)
--- NOTE | 2017-05-16 23:43 | PD.LABORPN ---
Objective Vital Signs Vital Signs Date Time Temp Pulse Resp B/P (MAP) Pulse Ox O2 Delivery O2 Flow Rate FiO2 05/16/17 23:00 52 133/64 (87) 05/16/17 22:45 50 107/58 (74) 05/16/17 22:30 54 137/80 (99) 05/16/17 22:15 57 124/79 (94) 05/16/17 22:00 54 135/83 (100) 05/16/17 21:45 56 123/69 (87) 05/16/17 21:30 62 131/86 (101) 05/16/17 21:15 59 130/81 (97) 05/16/17 21:00 63 117/68 (84) 05/16/17 20:45 72 18 115/68 (84) 05/16/17 20:30 60 117/64 (81) 05/16/17 20:19 98.1 05/16/17 20:19 18 05/16/17 20:15 18 05/16/17 20:15 60 120/62 (81) 05/16/17 20:10 61 135/68 (90) 05/16/17 20:05 60 120/60 (80) 05/16/17 20:00 18 05/16/17 20:00 67 05/16/17 20:00 66 128/59 (82) 05/16/17 19:56 61 128/67 (87) 05/16/17 19:55 70 05/16/17 19:50 71 130/73 (92) 05/16/17 19:50 67 05/16/17 19:45 18 05/16/17 19:45 68 18 19:45 75 135/82 (99) 05/16/17 19:40 70 18 19:40 67 126/91 (103) 05/16/17 19:39 73 135/81 (99) 05/16/17 18:00 98.5 16 05/16/17 17:10 53 126/73 (90) Objective Evaluated at 6 pm miserable with contractions and blowing with them on the birthing ball no bleeding Weeks Gestation: 38 Gest Age Assessed Date: May 16, 2017 Gest Age Assessed Time: 18:00 Pt started active labor?: Yes Active labor start date: May 16, 2017 Active labor start time: 18:00 Medical induction of labor?: Yes Medical induction start date: May 16, 2017 Medical induction start time: 11:00 Artificial rupture of membrane: Yes Artificial ROM date: May 16, 2017 Artifical ROM time: 18:00 Assessment/Plan Problem List: (1) Buprenorphine maintenance treatment affecting ICD Codes: O99.320 - Drug use complicating , unspecified trimester; F11.20 - Opioid dependence, uncomplicated; Z79.891 - shelter (current) use of opiate analgesic (2) 37 weeks gestation of ICD Codes: Z3A.37 - 37 weeks gestation of Status: Acute (3) Antepartum bleeding, third trimester ICD Codes: O46.93 - Antepartum hemorrhage, unspecified, third trimester Status: Acute Assessment and Plan anticipate Epidural post arom clear Africa London MD May 16, 2017 23:43
[2017-05-17] VITALS (89 sets, daily range): BP systolic 105–167; BP diastolic 55–103; PULSE 50–93; RESP 16–20; TEMP 98–99.5; O2SAT 97
--- NOTE | 2017-05-17 00:23 | PD.LABORPN ---
Subjective Subjective resting comfortably with epidural Objective Vital Signs Vital Signs Date Time Temp Pulse Resp B/P (MAP) Pulse Ox O2 Delivery O2 Flow Rate FiO2 05/16/17 23:45 48 142/59 (86) 05/16/17 23:30 50 118/65 (82) 05/16/17 23:15 50 138/67 (90) 05/16/17 23:00 52 133/64 (87) 05/16/17 22:45 50 107/58 (74) 05/16/17 22:30 54 137/80 (99) 05/16/17 22:15 57 124/79 (94) 05/16/17 22:00 54 135/83 (100) 05/16/17 21:45 56 123/69 (87) 05/16/17 21:30 62 131/86 (101) 05/16/17 21:15 59 130/81 (97) 05/16/17 21:00 63 117/68 (84) 05/16/17 20:45 72 18 115/68 (84) 05/16/17 20:30 60 117/64 (81) 05/16/17 20:19 98.1 05/16/17 20:19 18 05/16/17 20:15 18 05/16/17 20:15 60 120/62 (81) 05/16/17 20:10 61 135/68 (90) 05/16/17 20:05 60 120/60 (80) 05/16/17 20:00 18 05/16/17 20:00 67 05/16/17 20:00 66 128/59 (82) 05/16/17 19:56 61 128/67 (87) 05/16/17 19:55 70 18 19:50 71 130/73 (92) 05/16/17 19:50 67 18 19:45 18 05/16/17 19:45 68 18 19:45 75 135/82 (99) 18 19:40 70 18 19:40 67 126/91 (103) 05/16/17 19:39 73 135/81 (99) 05/16/17 18:00 98.5 16 05/16/17 17:10 53 126/73 (90) Objective strip category one 3/80%/anterior and 0 station some mild to moderate bleeding--clot with exam UCs every 3 minutes and palpate strong Weeks Gestation: 38 Gest Age Assessed Date: May 16, 2017 Gest Age Assessed Time: 18:00 Pt started active labor?: Yes Active labor start date: May 16, 2017 Active labor start time: 18:00 Medical induction of labor?: Yes Medical induction start date: May 16, 2017 Medical induction start time: 11:00 Artificial rupture of membrane: Yes Artificial ROM date: May 16, 2017 Artifical ROM time: 18:00 Assessment/Plan Problem List: (1) Buprenorphine maintenance treatment affecting ICD Codes: O99.320 - Drug use complicating , unspecified trimester; F11.20 - Opioid dependence, uncomplicated; 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
[2017-05-17] MEDS: LACTATED RINGER'S 1000 ML IV SCH (01:00)
[2017-05-17] MEDS ORDERED: fentaNYL 2MCG-BUPIV 0.125% INJ 100 ML ONE ×4 (02:03→15:32)
[2017-05-17] MEDS ORDERED: LIDOCAINE HCL 1.5% PF SOLN 20 ML AMP ONE ×2 (03:07→05:56)
--- NOTE | 2017-05-17 05:46 | PD.LABORPN ---
Subjective Subjective feeling pain Objective Vital Signs Vital Signs Date Time Temp Pulse Resp B/P (MAP) Pulse Ox O2 Delivery O2 Flow Rate FiO2 05/17/17 05:29 98.3 18 05/17/17 05:15 67 128/75 (92) 05/17/17 05:00 62 120/73 (89) 05/17/17 04:45 58 125/80 (95) 05/17/17 04:30 56 131/79 (96) 05/17/17 04:15 98.0 18 05/17/17 04:15 55 131/64 (86) 05/17/17 04:00 18 05/17/17 04:00 54 117/66 (83) 05/17/17 03:45 54 118/69 (85) 05/17/17 03:30 54 122/62 (82) 05/17/17 03:24 18 05/17/17 03:15 18 05/17/17 03:15 55 129/77 (94) 05/17/17 03:00 54 127/79 (95) 05/17/17 02:45 53 139/77 (97) 05/17/17 02:30 54 137/80 (99) 05/17/17 02:15 18 05/17/17 02:03 18 05/17/17 02:00 51 128/61 (83) 05/17/17 01:45 58 140/79 (99) 05/17/17 01:30 54 123/78 (93) 05/17/17 01:15 50 138/74 (95) 05/17/17 01:00 51 138/74 (95) 05/17/17 00:55 18 05/17/17 00:45 55 137/81 (99) 05/17/17 00:30 57 146/85 (105) 05/17/17 00:16 93 138/78 (98) 05/17/17 00:00 50 125/67 (86) 05/16/17 23:45 48 142/59 (86) 05/16/17 23:30 50 118/65 (82) 05/16/17 23:15 50 138/67 (90) 05/16/17 23:00 52 133/64 (87) 05/16/17 22:45 50 107/58 (74) 05/16/17 22:30 54 137/80 (99) 05/16/17 22:15 57 124/79 (94) 05/16/17 22:00 54 135/83 (100) 05/16/17 21:45 56 123/69 (87) Objective 690%/0 to +1 Weeks Gestation: 38 Gest Age Assessed Date: May 16, 2017 Gest Age Assessed Time: 18:00 Pt started active labor?: Yes Active labor start date: May 16, 2017 Active labor start time: 18:00 Medical induction of labor?: Yes Medical induction start date: May 16, 2017 Medical induction start time: 11:00 Artificial rupture of membrane: Yes Artificial ROM date: May 16, 2017 Artifical ROM time: 18:00 Assessment/Plan Problem List: (1) Buprenorphine maintenance treatment affecting ICD Codes: O99.320 - Drug use complicating , unspecified trimester; F11.20 - Opioid dependence, uncomplicated; Z79.891 - snf (current) use of opiate analgesic (2) 37 weeks gestation of ICD Codes: Z3A.37 - 37 weeks gestation of Status: Acute (3) Antepartum bleeding, third trimester ICD Codes: O46.93 - Antepartum hemorrhage, unspecified, third trimester Status: Acute Assessment and Plan anticipate Africa Vincent MD May 17, 2017 05:46
[2017-05-17] MEDS: SODIUM CHLORIDE 0.9% FLUSH 10 ML FLUSH IV FLUSH SCH ×2 (08:20→08:21)
--- NOTE | 2017-05-17 08:23 | PD.LABORPN ---
Subjective Subjective less discomfort with revision epidural Objective Vital Signs Vital Signs Date Time Temp Pulse Resp B/P (MAP) Pulse Ox O2 Delivery O2 Flow Rate FiO2 05/17/17 08:01 58 128/88 (101) 05/17/17 08:00 98.7 05/17/17 07:45 57 119/61 (80) 05/17/17 07:30 59 119/62 (81) 05/17/17 07:15 99.1 05/17/17 07:15 56 125/70 (88) 05/17/17 07:15 16 05/17/17 07:00 55 112/65 (81) 05/17/17 06:53 98.6 05/17/17 06:45 64 150/95 (113) 05/17/17 06:30 63 152/95 (114) 05/17/17 05:58 18 05/17/17 05:45 66 147/91 (109) 05/17/17 05:30 67 141/85 (103) 05/17/17 05:29 98.3 18 05/17/17 05:15 67 128/75 (92) 05/17/17 05:00 62 120/73 (89) 05/17/17 04:45 58 125/80 (95) 05/17/17 04:30 56 131/79 (96) 05/17/17 04:15 98.0 18 05/17/17 04:15 55 131/64 (86) 05/17/17 04:00 18 05/17/17 04:00 54 117/66 (83) 05/17/17 03:45 54 118/69 (85) 05/17/17 03:30 54 122/62 (82) 05/17/17 03:24 18 05/17/17 03:15 18 05/17/17 03:15 55 129/77 (94) 05/17/17 03:00 54 127/79 (95) 05/17/17 02:45 53 139/77 (97) 05/17/17 02:30 54 137/80 (99) 05/17/17 02:15 18 05/17/17 02:03 18 05/17/17 02:00 51 128/61 (83) 05/17/17 01:45 58 140/79 (99) 05/17/17 01:30 54 123/78 (93) 05/17/17 01:15 50 138/74 (95) 05/17/17 01:00 51 138/74 (95) 05/17/17 00:55 18 05/17/17 00:45 55 137/81 (99) 05/17/17 00:30 57 146/85 (105) Objective 7-8/90%/0 but not well applied/asynclitic needs to fill cervix completely strip category one Weeks Gestation: 38 Gest Age Assessed Date: May 16, 2017 Gest Age Assessed Time: 18:00 Pt started active labor?: Yes Active labor start date: May 16, 2017 Active labor start time: 18:00 Medical induction of labor?: Yes Medical induction start date: May 16, 2017 Medical induction start time: 11:00 Artificial rupture of membrane: Yes Artificial ROM date: May 16, 2017 Artifical ROM time: 18:00 Assessment/Plan Problem List: (1) Buprenorphine maintenance treatment affecting ICD Codes: O99.320 - Drug use complicating , unspecified trimester; F11.20 - Opioid dependence, uncomplicated; 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
--- NOTE | 2017-05-17 08:25 | PD.LABORPN ---
Subjective Subjective comfortable Objective Vital Signs Vital Signs Date Time Temp Pulse Resp B/P (MAP) Pulse Ox O2 Delivery O2 Flow Rate FiO2 05/17/17 08:01 58 128/88 (101) 05/17/17 08:00 98.7 05/17/17 07:45 57 119/61 (80) 05/17/17 07:30 59 119/62 (81) 05/17/17 07:15 99.1 05/17/17 07:15 56 125/70 (88) 05/17/17 07:15 16 05/17/17 07:00 55 112/65 (81) 05/17/17 06:53 98.6 05/17/17 06:45 64 150/95 (113) 05/17/17 06:30 63 152/95 (114) 05/17/17 05:58 18 05/17/17 05:45 66 147/91 (109) 05/17/17 05:30 67 141/85 (103) 05/17/17 05:29 98.3 18 05/17/17 05:15 67 128/75 (92) 05/17/17 05:00 62 120/73 (89) 05/17/17 04:45 58 125/80 (95) 05/17/17 04:30 56 131/79 (96) 05/17/17 04:15 98.0 18 05/17/17 04:15 55 131/64 (86) 05/17/17 04:00 18 05/17/17 04:00 54 117/66 (83) 05/17/17 03:45 54 118/69 (85) 05/17/17 03:30 54 122/62 (82) 05/17/17 03:24 18 05/17/17 03:15 18 05/17/17 03:15 55 129/77 (94) 05/17/17 03:00 54 127/79 (95) 05/17/17 02:45 53 139/77 (97) 05/17/17 02:30 54 137/80 (99) 05/17/17 02:15 18 05/17/17 02:03 18 05/17/17 02:00 51 128/61 (83) 05/17/17 01:45 58 140/79 (99) 05/17/17 01:30 54 123/78 (93) 05/17/17 01:15 50 138/74 (95) 05/17/17 01:00 51 138/74 (95) 05/17/17 00:55 18 05/17/17 00:45 55 137/81 (99) 05/17/17 00:30 57 146/85 (105) Objective cervix unchanged from earlier infant OP and not against cervix EFW > 9 pounds ocassinal decelerations with good variability Weeks Gestation: 38 Gest Age Assessed Date: May 16, 2017 Gest Age Assessed Time: 18:00 Pt started active labor?: Yes Active labor start date: May 16, 2017 Active labor start time: 18:00 Medical induction of labor?: Yes Medical induction start date: May 16, 2017 Medical induction start time: 11:00 Artificial rupture of membrane: Yes Artificial ROM date: May 16, 2017 Artifical ROM time: 18:00 Assessment/Plan Problem List: (1) Buprenorphine maintenance treatment affecting ICD Codes: O99.320 - Drug use complicating , unspecified trimester; F11.20 - Opioid dependence, uncomplicated; 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 If changes and strip reassuring will allow to continue labor. Popeye not think this baby will descend Africa London MD May 17, 2017 08:24
[2017-05-17] MEDS ORDERED: BUPIVACAINE HCL PF 0.25% 10 ML VIAL ONE (08:55)
[2017-05-17] MEDS ORDERED: LIDOCAINE 2%/EPINEPHrine PF 1:200,000 20ML SDV ONE (08:55)
[2017-05-17] MEDS: BUPRENORPHINE HCL 8 MG SUBLINGUAL TAB SL SCH (09:01)
--- NOTE | 2017-05-17 11:05 | PD.LABORPN ---
Subjective Subjective more comfortable Objective Vital Signs Vital Signs Date Time Temp Pulse Resp B/P (MAP) Pulse Ox O2 Delivery O2 Flow Rate FiO2 05/17/17 10:45 16 05/17/17 10:30 54 118/56 (76) 05/17/17 10:15 99.5 59 128/74 (92) 05/17/17 10:00 62 18 139/84 (102) 05/17/17 09:45 60 136/81 (99) 05/17/17 09:30 58 130/77 (94) 05/17/17 09:15 61 122/78 (93) 05/17/17 09:00 61 152/83 (106) 05/17/17 08:45 56 148/84 (105) 05/17/17 08:30 57 154/89 (110) 05/17/17 08:25 65 153/90 (111) 05/17/17 08:15 62 146/103 (117) 05/17/17 08:01 58 128/88 (101) 05/17/17 08:00 98.7 05/17/17 07:45 57 119/61 (80) 05/17/17 07:30 59 119/62 (81) 05/17/17 07:15 99.1 05/17/17 07:15 56 125/70 (88) 05/17/17 07:15 16 05/17/17 07:00 55 112/65 (81) 05/17/17 06:53 98.6 05/17/17 06:45 64 150/95 (113) 05/17/17 06:30 63 152/95 (114) 05/17/17 05:58 18 05/17/17 05:45 66 147/91 (109) 05/17/17 05:30 67 141/85 (103) 05/17/17 05:29 98.3 18 05/17/17 05:15 67 128/75 (92) 05/17/17 05:00 62 120/73 (89) 05/17/17 04:45 58 125/80 (95) 05/17/17 04:30 56 131/79 (96) 05/17/17 04:15 98.0 18 05/17/17 04:15 55 131/64 (86) 05/17/17 04:00 18 05/17/17 04:00 54 117/66 (83) 05/17/17 03:45 54 118/69 (85) 05/17/17 03:30 54 122/62 (82) 05/17/17 03:24 18 05/17/17 03:15 18 05/17/17 03:15 55 129/77 (94) Weeks Gestation: 38 Gest Age Assessed Date: May 16, 2017 Gest Age Assessed Time: 18:00 Pt started active labor?: Yes Active labor start date: May 16, 2017 Active labor start time: 18:00 Medical induction of labor?: Yes Medical induction start date: May 16, 2017 Medical induction start time: 11:00 Artificial rupture of membrane: Yes Artificial ROM date: May 16, 2017 Artifical ROM time: 18:00 Assessment/Plan Problem List: (1) Buprenorphine maintenance treatment affecting ICD Codes: O99.320 - Drug use complicating , unspecified trimester; F11.20 - Opioid dependence, uncomplicated; Z79.891 - halfway (current) use of opiate analgesic (2) 37 weeks gestation of ICD Codes: Z3A.37 - 37 weeks gestation of Status: Acute (3) Antepartum bleeding, third trimester ICD Codes: O46.93 - Antepartum hemorrhage, unspecified, third trimester Status: Acute Assessment and Plan baby better positioned 8-9 / 0/100% anticipate Africa Vincent MD May 17, 2017 11:05
[2017-05-17] MEDS ORDERED: ceFAZolin 1,000 MG/NS 100 ML IV SCH ×4 (12:30→21:00)
[2017-05-17] MEDS ORDERED: LORazepam 2 MG/ML VIAL ONE (13:53)
[2017-05-17] MEDS ORDERED: LACTATED RINGER'S 1000 ML INJ 1,000 ML IV SCH (14:15)
[2017-05-17] MEDS ORDERED: LORazepam 2 MG/ML VIAL IV PUSH ONE (14:15)
[2017-05-17] MEDS ORDERED: MEASLES, MUMPS, RUBELLA VACCINE 0.5 ML VIAL SQ ONE (16:00)
[2017-05-17] MEDS ORDERED: DIPHTH/TETANUS/ACEL PERTUSSIS (BOOSTER) 0.5 ML VIAL/PFS IM ONE (16:00)
[2017-05-17] MEDS ORDERED: ePHEDrine/NS 25 MG/5 ML SYRINGE IV PUSH PRN (16:30)
[2017-05-17] MEDS ORDERED: fentaNYL 2MCG-BUPIV 0.125% 100 ML EPIDURAL SCH (16:30)
[2017-05-17] MEDS ORDERED: DO NOT ADMINISTER ANTICOAGULANTS PRN (16:30)
[2017-05-17] MEDS ORDERED: NO SYSTEM NARCOTICS PRN (16:30)
--- NOTE | 2017-05-17 18:48 | PD.OB.DELI ---
Weeks gestation: 38 Gest age assessed date: May 16, 2017 Gest age assessed time: 18:00 Pt started active labor?: Yes Active labor start date: May 16, 2017 Active labor start time: 18:00 Medical induction of labor?: Yes Medical induction start date: May 16, 2017 Medical induction start time: 11:00 Artificial rupture of membrane: Yes Artificial ROM date: May 16, 2017 Artifical ROM time: 18:00 Anesthesia: Epidural Episiotomy: Midline Vaginal Delivery: Vacuum Presentation: Occiput anterior Nuchal Cord: None Delayed cord clamping (45 sec): Yes Infant: Male Delivery date: May 17, 2017 Delivery time: 18:45 One Minute : 7 Five Minute : 8 Weight: 6 14 Placenta: Spontaneous delivery Laceration: 2 deg Repair: Chromic running Estimated blood loss: 200 Africa London MD May 17, 2017 18:48
[2017-05-17] MEDS ORDERED: IBUPROFEN 800 MG TAB PO PRN (19:00)
[2017-05-17] MEDS ORDERED: DOCUSATE SODIUM 50 MG/SENNA 8.6 MG TAB PO PRN (19:00)
[2017-05-17] MEDS ORDERED: SODIUM CHLORIDE 0.9% FLUSH 10 ML FLUSH IV FLUSH PRN (19:00)
[2017-05-17] MEDS ORDERED: ACETAMINOPHEN 325 MG TAB PO PRN (19:00)
[2017-05-17] MEDS ORDERED: ZOLPIDEM TARTRATE 5 MG TAB PO PRN (19:00)
[2017-05-17] MEDS ORDERED: ALUMINUM/MAGNESIUM/SIMETH 30 ML CUP PO PRN (19:00)
[2017-05-17] MEDS ORDERED: OXYTOCIN 30 UNITS-500ML PREMIX 500 ML IV SCH (19:00)
[2017-05-17] MEDS ORDERED: WITCH HAZEL 50%/GLYCERIN 12.5% 40 PAD JAR TOPICAL PRN (19:00)
[2017-05-17] MEDS ORDERED: ONDANSETRON ODT 4 MG TAB PO PRN (19:00)
[2017-05-17] MEDS ORDERED: BENZOCAINE 20% TOPICAL SPRAY 60 ML CAN TOPICAL PRN (19:00)
[2017-05-17] MEDS ORDERED: SODIUM CHLORIDE 0.9% FLUSH 10 ML FLUSH IV FLUSH SCH (21:00)
[2017-05-17] MEDS ORDERED: PILL SPLITTER OTHER PRN (21:00)
[2017-05-18] MEDS: NICOTINE 14 MG/24 HR PATCH T-DERMAL SCH ×2 (01:09→09:00)
--- NOTE | 2017-05-18 08:10 | HHI.OB ---
Subjective Post Day: 1 Remarks no complaints Objective Vitals/I&O Vital Signs Date Time Temp Pulse Resp B/P (MAP) Pulse Ox O2 Delivery O2 Flow Rate FiO2 05/17/17 21:32 98.1 68 18 110/63 (79) 97 05/17/17 19:50 18 05/17/17 19:45 69 117/79 (92) 05/17/17 19:31 91 105/58 (74) 05/17/17 19:15 59 130/76 (94) 05/17/17 19:05 68 132/78 (96) 05/17/17 19:04 18 05/17/17 18:47 18 05/17/17 18:45 77 141/78 (99) 05/17/17 18:40 18 05/17/17 18:31 80 118/55 (76) 05/17/17 17:16 54 156/77 (103) 05/17/17 17:01 56 161/80 (107) 05/17/17 16:46 55 157/83 (107) 05/17/17 16:31 54 157/80 (105) 05/17/17 16:19 56 159/88 (111) 05/17/17 16:16 54 163/91 (115) 05/17/17 15:46 54 167/91 (116) 05/17/17 15:39 16 05/17/17 15:30 57 135/84 (101) 05/17/17 15:15 57 123/63 (83) 05/17/17 15:00 59 16 131/71 (91) 05/17/17 14:45 56 120/69 (86) 05/17/17 14:30 53 134/69 (90) 05/17/17 14:16 67 119/68 (85) 05/17/17 14:00 69 148/81 (103) 05/17/17 13:45 72 134/74 (94) 05/17/17 13:40 74 143/82 (102) 05/17/17 13:35 20 05/17/17 13:35 98.8 05/17/17 13:30 57 145/88 (107) 05/17/17 13:15 69 147/84 (105) 05/17/17 13:00 60 136/80 (98) 05/17/17 12:45 65 141/89 (106) 05/17/17 12:30 65 124/76 (92) 05/17/17 12:25 99.2 05/17/17 12:24 20 05/17/17 12:15 59 126/77 (93) 05/17/17 12:00 60 124/73 (90) 05/17/17 11:45 59 118/65 (82) 05/17/17 11:30 60 119/62 (81) 05/17/17 11:00 18 05/17/17 11:00 98.7 05/17/17 10:45 16 05/17/17 10:45 57 128/66 (86) 05/17/17 10:30 54 118/56 (76) 05/17/17 10:15 99.5 59 128/74 (92) 05/17/17 10:00 62 18 139/84 (102) 05/17/17 09:45 60 136/81 (99) 05/17/17 09:30 58 130/77 (94) 05/17/17 09:15 61 122/78 (93) 05/17/17 09:00 61 152/83 (106) 05/17/17 08:45 56 148/84 (105) 05/17/17 08:30 57 154/89 (110) 05/17/17 08:25 65 153/90 (111) 05/17/17 08:15 62 146/103 (117) Objective Remarks GENERAL: Well-nourished, well-developed patient. CARDIOVASCULAR: Regular rate and rhythm without murmurs, gallops, or rubs. RESPIRATORY: Breath sounds equal bilaterally. No accessory muscle use. ABDOMEN/GI: Abdomen soft, non-tender. Fundus: Firm, non-tender at umbilicus. GENITOURINARY: Light to moderate bleeding. EXTREMITIES: No cyanosis or edema, non-tender, without signs of DVT. Medications and IVs Current Medications Medications (Trade) Dose Ordered Sig/Riley Route Start Time Stop Time Status Last Admin (Habitrol 14 Mg Patch.24 Hr) 1 patch DAILY T-DERMAL 05/15/17 17:00 05/18/17 01:09 Miscellaneous Information 1 HS T-DERMAL 05/15/17 21:00 05/15/17 21:00 Miscellaneous Information No systemic narcotics to be given except... UNSCH PRN .XX 05/17/17 16:30 05/18/17 16:29 Miscellaneous Information DO NOT ADMINISTER ANY ANTICOAGUL... UNSCH PRN .XX 05/17/17 16:30 05/18/17 16:29 (NS Flush) 2 ml BID IV FLUSH 05/17/17 21:00 (NS Flush) 2 ml UNSCH PRN IV FLUSH 05/17/17 19:00 (Tylenol) 650 mg Q4H PRN PO 05/17/17 19:00 (Motrin) 800 mg Q8H PRN PO 05/17/17 19:00 (Americaine 20% Top Spr) 1 spray Q4H PRN TOPICAL 05/17/17 19:00 05/18/17 06:46 (Tucks Pads) 1 applic QID PRN TOPICAL 05/17/17 19:00 05/18/17 06:46 (Elvira-Colace) 2 tab Q12H PRN PO 05/17/17 19:00 (Ambien) 5 mg HS PRN PO 05/17/17 19:00 (Mag-Al Plus Susp Liq) 15 ml Q8H PRN PO 05/17/17 19:00 (Zofran Odt) 4 mg Q6H PRN PO 05/17/17 19:00 (Buprenorphine) 4 mg BID SL 05/17/17 21:00 (Pill Splitter) 1 ea UNSCH PRN OTHER 05/17/17 21:00 (Boostrix Inj) 0.5 ml ONCE ONCE IM 05/18/17 16:00 05/18/17 16:01 (M-M-R Ii Inj) 0.5 ml ONCE ONCE SQ 05/18/17 16:00 05/18/17 16:01 Assessment/Plan Problem List: (1) Buprenorphine maintenance treatment affecting ICD Codes: O99.320 - Drug use complicating , unspecified trimester; F11.20 - Opioid dependence, uncomplicated; 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
[2017-05-18 09:00] VITALS: BP 135/70; PULSE 62; RESP 18; TEMP 98
[2017-05-18] MEDS: BUPRENORPHINE HCL 8 MG SUBLINGUAL TAB SL SCH ×2 (09:53→22:20)
[2017-05-18] MEDS ORDERED: DIPHTH/TETANUS/ACEL PERTUSSIS (BOOSTER) 0.5 ML VIAL/PFS IM ONE (16:00)
[2017-05-18] MEDS ORDERED: MEASLES, MUMPS, RUBELLA VACCINE 0.5 ML VIAL SQ ONE (16:00)
--- NOTE | 2017-05-18 17:33 | HHI.DCPOC ---
Discharge Care Plan Diagnosis: (1) Vacuum extractor delivery, delivered (2) Hepatitis C Your Health Problems Are: Vaginal delivery Report Symptoms to Your Doctor -Temperature above 100.5 degrees -Redness, of incision or excessive or foul smelling drainage -Unusual pain or calf pain -Increased vaginal bleeding -Painful or difficulty urinating -Feelings of extreme sadness or anxiety after 2 weeks Goals to Promote Your Health * To prevent worsening of your condition and complications * To maintain your health at the optimal level Directions to Meet Your Goals Take your medications as prescribed Follow your dietary instruction Follow activity as directed Ensure plenty of rest for recovery Drink fluids for hydration Keep your appointments as scheduled Take your immunizations and boosters as scheduled If your symptoms worsen call your PCP, if no PCP go to Urgent Care Center or Emergency Room Smoking is Dangerous to Your Health. Avoid second hand smoke Call the 24-hour crisis hotline for domestic abuse at Janiya Govea MD May 18, 2017 17:33
[2017-05-19] MEDS ORDERED: NICOTINE 14 MG/24 HR PATCH T-DERMAL SCH (01:00)
[2017-05-19 08:00] VITALS: BP 119/69; PULSE 57; RESP 14; TEMP 97.8
--- NOTE | 2017-05-19 08:51 | HHI.OB ---
Subjective Post Day: 2 Remarks doing well, baby has elevated bili levels Objective Vitals/I&O Vital Signs Date Time Temp Pulse Resp B/P (MAP) Pulse Ox O2 Delivery O2 Flow Rate FiO2 05/18/17 09:00 98.0 62 18 135/70 (91) Objective Remarks GENERAL: Well-nourished, well-developed patient. CARDIOVASCULAR: Regular rate and rhythm without murmurs, gallops, or rubs. RESPIRATORY: Breath sounds equal bilaterally. No accessory muscle use. ABDOMEN/GI: Abdomen soft, non-tender. Fundus: Firm, non-tender at umbilicus. GENITOURINARY: Light to moderate bleeding. EXTREMITIES: No cyanosis or edema, non-tender, without signs of DVT. Medications and IVs Current Medications Medications (Trade) Dose Ordered Sig/Riley Route Start Time Stop Time Status Last Admin Miscellaneous Information 1 HS T-DERMAL 05/15/17 21:00 05/15/17 21:00 (NS Flush) 2 ml BID IV FLUSH 05/17/17 21:00 (NS Flush) 2 ml UNSCH PRN IV FLUSH 05/17/17 19:00 (Tylenol) 650 mg Q4H PRN PO 05/17/17 19:00 (Motrin) 800 mg Q8H PRN PO 05/17/17 19:00 (Americaine 20% Top Spr) 1 spray Q4H PRN TOPICAL 05/17/17 19:00 05/18/17 06:46 (Tucks Pads) 1 applic QID PRN TOPICAL 05/17/17 19:00 05/18/17 06:46 (Elvira-Colace) 2 tab Q12H PRN PO 05/17/17 19:00 (Ambien) 5 mg HS PRN PO 05/17/17 19:00 (Mag-Al Plus Susp Liq) 15 ml Q8H PRN PO 05/17/17 19:00 (Zofran Odt) 4 mg Q6H PRN PO 05/17/17 19:00 (Buprenorphine) 4 mg BID SL 05/17/17 21:00 05/18/17 22:20 (Pill Splitter) 1 ea UNSCH PRN OTHER 05/17/17 21:00 (Habitrol 14 Mg Patch.24 Hr) 1 patch DAILY@0100 T-DERMAL 05/19/17 01:00 05/19/17 03:41 Assessment/Plan Problem List: (1) Buprenorphine maintenance treatment affecting ICD Codes: O99.320 - Drug use complicating , unspecified trimester; F11.20 - Opioid dependence, uncomplicated; 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
[2017-05-19] MEDS: BUPRENORPHINE HCL 8 MG SUBLINGUAL TAB SL SCH (08:52)
== END 2017-05-19 11:57 | disposition home or self-care (01) | DRG 774 ==
LOC: HOBED 08:37 → H2EA 10:05 → OBSVTOIN 05-16 11:54 → H2EA 05-16 12:35 → H1EA 05-17 21:09
PROVIDERS: ADMIT Obstetrics & Gynecology; ATTEND Obstetrics & Gynecology
PROC: 10E0XZZ Delivery of Products of Conception, External Approach (ICD-10-PCS; principal; 2017-05-17)
PROC: 0KQM0ZZ Repair Perineum Muscle, Open Approach (ICD-10-PCS; 2017-05-17)
PROC: 10D07Z6 Extraction of Products of Conception, Vacuum, Via Natural or Artificial Opening (ICD-10-PCS; 2017-05-17)
PROC: 10907ZC Drainage of Amniotic Fluid, Therapeutic from Products of Conception, Via Natural or Artificial Opening (ICD-10-PCS; 2017-05-17)
PROC: 0W8NXZZ Division of Female Perineum, External Approach (ICD-10-PCS; 2017-05-17)
PROC: 3E0R3BZ Introduction of Anesthetic Agent into Spinal Canal, Percutaneous Approach (ICD-10-PCS; 2017-05-17)
PROC: 00HU33Z Insertion of Infusion Device into Spinal Canal, Percutaneous Approach (ICD-10-PCS; 2017-05-17)
DX: O46.93 Antepartum hemorrhage, unspecified, third trimester (principal); F11.20 Opioid dependence, uncomplicated; O99.324 Drug use complicating childbirth; O98.42 Viral hepatitis complicating childbirth; O70.1 Second degree perineal laceration during delivery; R03.0 Elevated blood-pressure reading, without diagnosis of hypertension; Z3A.37 37 weeks gestation of pregnancy; Z37.0 Single live birth; Z72.0 Tobacco use; O66.5 Attempted application of vacuum extractor and forceps; Z23 Encounter for immunization
CPT/HCPCS: 59025; 76815; 76937; 80053; 80076; 80307; 81001; 82570; 84156; 84550; 85025; 86900; 86901; 90715; G0481; J0690; J2060; J3010; J7120; Q0169

== ENCOUNTER 2017-05-21 19:19 | Observation (INO) | payer BC ==
[~2017-05-21] VITALS: Ht 152.4 cm; Wt 59.0 kg
[~2017-05-21 19:19] MED LIST changes: +DIPHTH/TETANUS/ACEL PERTUSSIS (BOOSTER) 0.5 ML VIAL/PFS IM ONE; +MEASLES, MUMPS, RUBELLA VACCINE 0.5 ML VIAL SQ ONE
[2017-05-21 19:21] VITALS: BP 142/93; PULSE 88; RESP 15; TEMP 99.3; O2SAT 100
[2017-05-21] MEDS ORDERED: SODIUM CHLOR 0.9% 1000 ML INJ 1,000 ML IV SCH ×2 (19:21→23:45)
[2017-05-21 19:27] VITALS: RESP 15; O2SAT 100
[2017-05-21] MEDS ORDERED: ONDANSETRON HCL 4 MG/2 ML VIAL IVP ONE (19:30)
[2017-05-21] MEDS ORDERED: MORPHINE SULFATE 4 MG/ML INJ IV PUSH ONE (19:30)
[2017-05-21] MEDS ORDERED: SODIUM CHLORIDE 0.9% FLUSH 10 ML FLUSH IV FLUSH PRN ×2 (19:30→23:45)
--- NOTE | 2017-05-21 19:36 | PD ---
HPI . Vaginal bleeding Chief Complaint: Bleeding Time Seen by Provider: 19:21 Travel History International Travel<30 days: No Contact w/Intl Traveler<30days: No Traveled to known affect area: No History of Present Illness HPI 21-year-old female status post 5 days ago on the 17 May, was visiting her child up in the pediatric floor, when she had felt of abdominal pain and pressure and a sudden castro of blood and clots and possible tissue vaginally. Patient notes improvement in her abdominal pain, and her bleeding has subsided since. Patient denies having any fever. Also denies lightheadedness, shortness of breath, chest pain. Patient denies any history of any bleeding dyscrasias or a family history of same. Patient is on Suboxone PFSH Past Medical History Narrative Medical Past medical history reviewed Diminished Hearing: No Immunizations Current: No Influenza Vaccination: No ?: Not : 1 Para: 1 Social History Alcohol Use: No Tobacco Use: Yes (1/2 pck/day) Substance Use: Yes (former heroin user) Allergies-Medications (Allergen,Severity, Reaction): Coded Allergies: No Known Allergies (Unverified Allergy, Unknown, 05/21/17) Reported Meds & Prescriptions Reported Meds & Active Scripts Active Reported Buprenorphine (Buprenorphine HCl) 8 Mg Subl 8 Mg SL DAILY Vitamins Tablet (Pnv No.95/Ferrous Fum/Folic AC) 28 Mg Iron-800 Mcg Tablet 1 Tab PO DAILY Narrative Medication Allergies and medications reviewed Review of Systems Except as stated in HPI: all other systems reviewed are Neg General / Constitutional: No: Fever Eyes: No: Visual changes HENT: No: Headaches Cardiovascular: No: Chest Pain or Discomfort Respiratory: No: Shortness of Breath Gastrointestinal: No: Abdominal Pain Genitourinary: Positive: Vaginal Bleeding, No: Dysuria Musculoskeletal: No: Pain Skin: No Rash Neurologic: No: Weakness Psychiatric: No: Depression Endocrine: No: Polydipsia Hematologic/Lymphatic: No: Easy Bruising Physical Exam Narrative GENERAL: Awake alert oriented 3 no acute distress. Vital signs afebrile normal and stable SKIN: Warm and dry. HEAD: Atraumatic. Normocephalic. EYES: Pupils equal and round. No scleral icterus. No injection or drainage. ENT: No nasal bleeding or discharge. Mucous membranes pink and moist. NECK: Trachea midline. No JVD. CARDIOVASCULAR: Regular rate and rhythm. RESPIRATORY: No accessory muscle use. Clear to auscultation. Breath sounds equal bilaterally. GASTROINTESTINAL: Abdomen soft, non-tender, nondistended. Hepatic and splenic margins not palpable. MUSCULOSKELETAL: Extremities without clubbing, cyanosis, or edema. No obvious deformities. NEUROLOGICAL: Awake and alert. No obvious cranial nerve deficits. Motor grossly within normal limits. Five out of 5 muscle strength in the arms and legs. Normal speech. PSYCHIATRIC: Appropriate mood and affect; insight and judgment normal. Data Data Last Documented VS Vital Signs Date Time Temp Pulse Resp B/P (MAP) Pulse Ox O2 Delivery O2 Flow Rate FiO2 05/21/17 19:28 88 15 100 Room Air 05/21/17 19:21 99.3 142/93 (109) Orders Orders Complete Blood Count With Diff (05/21/17 19:21) Comprehensive Metabolic Panel (05/21/17 19:21) Lactic Acid (05/21/17 19:21) Prothrombin Time / Inr (Pt) (05/21/17 19:21) Act Partial Throm Time (Ptt) (05/21/17 19:21) Urinalysis - C+S If Indicated (05/21/17 19:21) Iv Access Insert/Monitor (05/21/17 19:21) Ecg Monitoring (05/21/17 19:21) Oximetry (05/21/17 19:21) Morphine Inj (Morphine Inj) (05/21/17 19:30) Ondansetron Inj (Zofran Inj) (05/21/17 19:30) Sodium Chlor 0.9% 1000 Ml Inj (Ns 1000 M (05/21/17 19:21) Sodium Chloride 0.9% Flush (Ns Flush) (05/21/17 19:30) Ed Poc Ultrasound (05/21/17 19:21) Us Pelvis Comp Field Service Engineer/Non-Preg (05/21/17 ) Piperacil-Tazo 4.5 Gm Premix (Zosyn 4.5 (05/21/17 21:30) Methylergonovine Inj (Methergine Inj) (05/21/17 23:30) Admit Order (Ed Use Only) (05/21/17 23:18) Labs Laboratory Tests Test 05/21/17 19:45 2/24/18 20:30 White Blood Count 13.3 TH/MM3 Red Blood Count 3.08 MIL/MM3 Hemoglobin 9.0 GM/DL Hematocrit 27.0 % Mean Corpuscular Volume 87.8 FL Mean Corpuscular Hemoglobin 29.4 PG Mean Corpuscular Hemoglobin Concent 33.5 % Red Cell Distribution Width 14.0 % Platelet Count 364 TH/MM3 Mean Platelet Volume 8.7 FL Neutrophils (%) (Auto) 58.0 % Lymphocytes (%) (Auto) 33.3 % Monocytes (%) (Auto) 5.9 % Eosinophils (%) (Auto) 2.2 % Basophils (%) (Auto) 0.6 % Neutrophils # (Auto) 7.7 TH/MM3 Lymphocytes # (Auto) 4.4 TH/MM3 Monocytes # (Auto) 0.8 TH/MM3 Eosinophils # (Auto) 0.3 TH/MM3 Basophils # (Auto) 0.1 TH/MM3 CBC Comment AUTO DIFF Differential Total Cells Counted 100 Neutrophils % (Manual) 52 % Band Neutrophils % 1 % Lymphocytes % 35 % Monocytes % 5 % Eosinophils % 1 % Neutrophils # (Manual) 7.8 TH/MM3 Metamyelocytes 1 % Myelocytes 2 % Promyelocytes 3 % Nucleated Red Blood Cells 1 /100 WBC Differential Comment FINAL DIFF MANUAL Platelet Estimate NORMAL Platelet Morphology Comment NORMAL Red Cell Morphology Comment NORMAL Prothrombin Time 9.4 SEC Prothromb Time International Ratio 0.9 RATIO Activated Partial Thromboplast Time 24.9 SEC Blood Urea Nitrogen 9 MG/DL Creatinine 0.69 MG/DL Random Glucose 89 MG/DL Total Protein 7.3 GM/DL Albumin 3.0 GM/DL Calcium Level 9.3 MG/DL Alkaline Phosphatase 253 U/L Aspartate Amino Transf (AST/SGOT) 129 U/L Alanine Aminotransferase (ALT/SGPT) 98 U/L Total Bilirubin 0.4 MG/DL Sodium Level 139 MEQ/L Potassium Level 3.7 MEQ/L Chloride Level 104 MEQ/L Carbon Dioxide Level 29.1 MEQ/L Anion Gap 6 MEQ/L Estimat Glomerular Filtration Rate 105 ML/MIN Lactic Acid Level 1.0 mmol/L Urine Color YELLOW Urine Turbidity CLEAR Urine pH 7.0 Urine Specific [place] 1.014 Urine Protein TRACE mg/dL Urine Glucose (UA) NEG mg/dL Urine Ketones NEG mg/dL Urine Occult Blood LARGE Urine Nitrite NEG Urine Bilirubin NEG Urine Urobilinogen 2.0 MG/DL Urine Leukocyte Esterase MOD Urine RBC /hpf Urine WBC 5 /hpf Urine Bacteria OCC /hpf Microscopic Urinalysis Comment CULT NOT INDICATED Urine Random Creatinine 78 MG/DL Urine Random Total Protein 31 MG/DL Urine Protein/Creatinine Ratio 0.40 [facility] Medical Decision Making Medical Screen Exam Complete: Yes Emergency Medical Condition: Yes Medical Record Reviewed: Yes Differential Diagnosis Vaginal bleeding, vaginal bleeding, retained products of conception Narrative Course Case discussed with HEAD TENNIS COACH Dr Ordonez at patient's presentation. Awaiting labs and pelvic sono Pelvic sonogram reveals hyperemic uterus with possible retained products and heterogeneity. Discussed with , the patient admitted. Patient received IV antibiotics at result of elevated white blood cell count 13k, receiving IV fluids. A repeat examination patient has normal blood pressure normal pulse is afebrile. Patient has mild tenderness suprapubically consistent with above. Patient's lipid liver function test resulted as being marginally elevated. Negative proteinurea. Patient had recent aberrant blood pressure readings as per patient during delivery with some concern by her HEAD TENNIS COACH of preeclampsia. Discussed with Dr. Ordonez, who started patient on magnesium protocol for preeclampsia. Patient admitted Diagnosis Primary Impression: Retained products of conception with hemorrhage Admitting Information Admitting Physician Requests: Admit Scripts Amoxicillin-Clavulanate (Augmentin) 500-125 mg Tab 500 MG PO BID for Infection for 7 Days, TAB 0 Refills Prov: Valentino Ordonez MD 05/22/17 Ferrous Sulfate (Ferrous Sulfate) 325 Mg (65 Mg Iron) Tablet 325 MG PO BIDPC for Nutritional Supplement, #60 TAB 0 Refills Prov: Valentino Ordonez MD 05/22/17 Samuel Hernandez MD May 21, 2017 19:36
[2017-05-21 20:28] LABS: AUTOMATED NEUTROPHIL # 7.7 TH/MM3 (1.8-7.7); BASOPHIL # 0.1 TH/MM3 (0-0.2); BASOPHIL % 0.6 % (0.0-2.0); EOSINOPHIL # 0.3 TH/MM3 (0-0.4); EOSINOPHIL % 2.2 % (0.0-4.0); LYMPH % 33.3 % (9.0-44.0); LYMPHOCYTE # 4.4 TH/MM3 (1.0-4.8); MEAN CELL VOLUME 87.8 FL (80.0-100.0); MEAN CORPUSCULAR HEMOGLOBIN 29.4 PG (27.0-34.0); MEAN CORPUSCULAR HGB CONC 33.5 % (32.0-36.0); MEAN PLATELET VOLUME 8.7 FL (7.0-11.0); MONO % 5.9 % (0.0-8.0); MONOCYTE # 0.8 TH/MM3 (0-0.9); PLATELET COUNT 364 TH/MM3 (150-450); RED BLOOD COUNT 3.08 MIL/MM3 (4.00-5.30); WHITE BLOOD COUNT 13.3 TH/MM3 (4.0-11.0)
[2017-05-21 20:36] LABS: INTERNATIONAL NORMALIZED RATIO 0.9 RATIO; PROTHROMBIN TIME - PATIENT 9.4 SEC (9.8-11.6)
[2017-05-21 20:43] LABS: AST (GOT) 129 U/L (15-37); BICARBONATE 29.1 MEQ/L (21.0-32.0); BLOOD UREA NITROGEN 9 MG/DL (7-18); CALCIUM 9.3 MG/DL (8.5-10.1); CHLORIDE 104 MEQ/L (98-107); CREATININE 0.69 MG/DL (0.50-1.00); GLOMERULAR FILTRATION RATE 105 ML/MIN (>89); GLUCOSE,RANDOM 89 MG/DL (74-106); SODIUM (NA) 139 MEQ/L (136-145)
[2017-05-21 20:44] LABS: ALT (GPT) 98 U/L (10-53)
[2017-05-21 20:46] LABS: ALKALINE PHOSPHATASE 253 U/L (45-117); TOTAL BILIRUBIN ADULT 0.4 MG/DL (0.2-1.0); TOTAL PROTEIN 7.3 GM/DL (6.4-8.2)
[2017-05-21 21:04] LABS: BACTERIA, URINE OCC /hpf; BILIRUBIN, URINE NEG (NEG); BLOOD, URINE LARGE (NEG); GLUCOSE,URINE NEG (NEG); KETONE, URINE NEG (NEG); NITRITE,URINE NEG (NEG); URINE COLOR YELLOW (YELLW/STRAW); URINE LEUKOCYTE ESTERASE MOD (NEG)
[2017-05-21] MEDS ORDERED: PIPERACIL-TAZO 4.5 GM PREMIX 100 ML IV ONE (21:30)
[2017-05-21 21:31] LABS: BANDS 1 % (0-6); CORRECTED NUCLEATED RBC 1 /100 WBC (0-0); LYMPHOCYTES 35 % (9-44); METAMYELOCYTES 1 % (0-1); MONOCYTES 5 % (0-8); MYELOCYTES 2 % (0-0); NEUTROPHIL # MANUAL DIFF 7.8 TH/MM3 (1.8-7.7); NUCLEATED RED BLOOD CELL 1 (0-0); POLYS (SEG NEUTROPHILS) 52 % (16-70); PROMYELOCYTES 3 % (0-0)
--- NOTE | 2017-05-21 22:52 | RADRPT ---
EXAM DATE/TIME: 05/21/2017 21:41 [place] COMPARISON: US OB LIMITED, May 15, 2017, 9:31. CT ABDOMEN & PELVIS W/O CONTRAST, March 08, 2016, 16:05. INDICATIONS : Bleeding. MEDICAL HISTORY : . Substance use. Tobacco use. SURGICAL HISTORY : None. ENCOUNTER: Initial ACUITY: 1 day PAIN SCORE: 0/10 LOCATION: Bilateral pelvis MEASUREMENTS: UTERUS: 18.1 x 10.2 x 8.1 cm ENDOMETRIAL STRIPE: 6 mm FINDINGS: Patient declined transvaginal imaging. UTERUS: Uterus is enlarged consistent with recent . Patient reports that she delivered 4 days ago. E ndometrium is heterogeneous and mildly thickened measuring approximately 13 mm. No focal area of incr eased Doppler flow is visualized. RIGHT OVARY: Not visualized. LEFT OVARY: Not visualized. MISCELLANEOUS: No free fluid. CONCLUSION: 1. Enlarged uterus consistent with recent state. Endometrium is mildly thickened and very heterogeneous. No abnormal increased Doppler signal is identified. Based on heterogeneity and thickne ss cannot definitely exclude retained products of conception. Consider followup if symptoms persist. 2. Please note that neither ovary is visualized. Nicolas Yadav MD on May 21, 2017 at 22:47 Board Certified Radiologist. This report was verified electronically.
[2017-05-21] MEDS ORDERED: METHYLERGONOVINE MALEATE 0.2 MG/ML VIAL IM ONE (23:30)
[2017-05-21] MEDS ORDERED: BENZOCAINE 20% TOPICAL SPRAY 60 ML CAN TOPICAL PRN (23:45)
[2017-05-21] MEDS ORDERED: CALCIUM GLUCONATE 10% 1 GM/10 ML VIAL IV PUSH PRN (23:45)
[2017-05-21] MEDS ORDERED: DOCUSATE SODIUM 50 MG/SENNA 8.6 MG TAB PO PRN (23:45)
[2017-05-21] MEDS ORDERED: WITCH HAZEL 50%/GLYCERIN 12.5% 40 PAD JAR TOPICAL PRN (23:45)
[2017-05-21] MEDS ORDERED: oxyCODONE/ACETAMINOPHEN 5 MG/325 MG TAB PO PRN ×2 (23:45)
[2017-05-21] MEDS ORDERED: MAGNESIUM SULFATE 4 GM PREMIX 100 ML IV ONE (23:45)
[2017-05-21] MEDS ORDERED: ONDANSETRON ODT 4 MG TAB PO PRN (23:45)
[2017-05-21] MEDS ORDERED: ACETAMINOPHEN 325 MG TAB PO PRN (23:45)
[2017-05-21] MEDS ORDERED: IBUPROFEN 800 MG TAB PO PRN (23:45)
[2017-05-21] MEDS ORDERED: ZOLPIDEM TARTRATE 5 MG TAB PO PRN (23:45)
[2017-05-21] MEDS ORDERED: MAGNESIUM SULFATE 40 GM PREMIX 1,000 ML IV SCH (23:45)
[2017-05-21] MEDS ORDERED: ALUMINUM/MAGNESIUM/SIMETH 30 ML CUP PO PRN (23:45)
--- NOTE | 2017-05-21 23:57 | HHI.PR ---
NET TECHNICAL ARCHITECT Note Note Spoke to Dr. Hernandez about patient, had heavy episode of vaginal bleeding this evening and no longer has bleeding, reviewed US report, could not pull up images and ES 13mm, heterogeneous, enlarged and could not rule out retained products of conception, pt afebrile but WBC slightly elevated, was given one dose zosyn prophylactically, will not continue abx at this time, could still be in normal range, pt s/p on 05/17 that was uncomplicated per report and course was also unremarkable, on recent medical record review pt has mild range BP, was normotensive at time of delivery, ED MD stated pt asymtpomatic, pts LFTs elevated but stable from time of admission for labor, urine with trace protein, P:C pending, pt does have history of Hep C per record , unsure if this is recent diagnosis, given LFTs and mild range BPs will error on side of caution and begin magnesium for seizure ppx and reevaluate in AM. Continue patients subutex. Plan: NPO at midnight, PO miso q4h, AM CBC, CMP, consider RUQ US and/or D&C in AM. Valentino Ordonez MD May 21, 2017 23:57
[2017-05-22] MEDS ORDERED: MORPHINE SULFATE 2 MG/ML INJ IV PUSH PRN
[2017-05-22 00:06] VITALS: BP 150/85; PULSE 62; RESP 15; O2SAT 99
[2017-05-22 00:29] VITALS: BP 114/67; PULSE 56; RESP 15; O2SAT 99
[2017-05-22 00:37] VITALS: BP 121/70; PULSE 72; RESP 15; O2SAT 99
[2017-05-22 00:47] LABS: AUTOMATED NEUTROPHIL # 8.5 TH/MM3 (1.8-7.7); BASOPHIL # 0.1 TH/MM3 (0-0.2); BASOPHIL % 0.5 % (0.0-2.0); EOSINOPHIL # 0.2 TH/MM3 (0-0.4); EOSINOPHIL % 1.9 % (0.0-4.0); HEMATOCRIT 21.3 % (35.0-46.0); HEMOGLOBIN 7.5 GM/DL (11.6-15.3); LYMPH % 24.1 % (9.0-44.0); MEAN CELL VOLUME 87.9 FL (80.0-100.0); MEAN CORPUSCULAR HEMOGLOBIN 31.1 PG (27.0-34.0); MEAN CORPUSCULAR HGB CONC 35.4 % (32.0-36.0); MEAN PLATELET VOLUME 8.7 FL (7.0-11.0); MONO % 5.7 % (0.0-8.0); MONOCYTE # 0.7 TH/MM3 (0-0.9); NEUT % 67.8 % (16.0-70.0); PLATELET COUNT 282 TH/MM3 (150-450); RED BLOOD COUNT 2.42 MIL/MM3 (4.00-5.30); RED CELL DISTRIBUTION WIDTH 13.9 % (11.6-17.2); WHITE BLOOD COUNT 12.5 TH/MM3 (4.0-11.0)
[2017-05-22 02:58] LABS: BANDS 6 % (0-6); BASOPHILS 3 % (0-2); LYMPHOCYTES 21 % (9-44); MONOCYTES 8 % (0-8); NEUTROPHIL # MANUAL DIFF 7.9 TH/MM3 (1.8-7.7); POLYS (SEG NEUTROPHILS) 57 % (16-70)
[2017-05-22] MEDS ORDERED: LACTATED RINGER'S 1000 ML INJ 1,000 ML IV SCH (03:30)
[2017-05-22] MEDS: MISOPROSTOL 200 MCG TAB PO SCH ×2 (04:07→08:59)
[2017-05-22 07:49] LABS: AUTOMATED NEUTROPHIL # 7.6 TH/MM3 (1.8-7.7); BASOPHIL # 0.1 TH/MM3 (0-0.2); BASOPHIL % 0.7 % (0.0-2.0); EOSINOPHIL # 0.2 TH/MM3 (0-0.4); EOSINOPHIL % 1.8 % (0.0-4.0); HEMATOCRIT 23.8 % (35.0-46.0); HEMOGLOBIN 8.2 GM/DL (11.6-15.3); LYMPHOCYTE # 3.2 TH/MM3 (1.0-4.8); MEAN CELL VOLUME 87.1 FL (80.0-100.0); MEAN CORPUSCULAR HEMOGLOBIN 30.2 PG (27.0-34.0); MEAN CORPUSCULAR HGB CONC 34.6 % (32.0-36.0); MEAN PLATELET VOLUME 8.3 FL (7.0-11.0); MONO % 7.4 % (0.0-8.0); MONOCYTE # 0.9 TH/MM3 (0-0.9); NEUT % 63.1 % (16.0-70.0); PLATELET COUNT 310 TH/MM3 (150-450); RED BLOOD COUNT 2.74 MIL/MM3 (4.00-5.30); RED CELL DISTRIBUTION WIDTH 14.2 % (11.6-17.2)
--- NOTE | 2017-05-22 08:07 | HHI.PR ---
NURSE HEAD Note Note S: Patient doing well, states bleeding much improved, feels somewhat tired, has not ambulated because in bed with Jackson, denies dizziness or lightheadedness. O: Exam: Abdomen soft, mildly tender, A/P 21-year-old 001 status post vacuum-assisted vaginal delivery on 2017 1. Vaginal bleeding/anemia: Patient's vital signs stable, afebrile, normotensive, not tachycardic, will DC Jackson and ambulate, and monitor for bleeding, per patient the bleeding improved, however per nursing patient did saturate a pad once overnight and had minimal to moderate bleeding every 2 hours , formal ultrasound showed endometrial stripe of 13 mm, cannot rule out retained products of conceptions, bedside ultrasound this AM showed heterogeneous but 6mm stripe, at this time suspicion is low for retained products, patient had no change in bleeding with miso overnight will DC today. AM hemoglobin stable from yesterday, did have a 7.5 overnight but likely dilutional, Hb pre delivery on 05/16 was 11.7. Did have mildly elevated white blood cell count, likely physiologic given recent status, has trended down since presentation did receive 1 dose of Zosyn and ER. 2. Rule out preeclampsia / transaminitis: Patient had mild range blood pressure in the ED, blood pressure since that time have been normotensive , patient is asymptomatic, magnesium was given for seizure prophylaxis as a precaution overnight given her P:C of 0.5, mild transaminitis and that mild range blood pressure, however I believe the transaminitis represents sequelae from her hepatitis C (have trended down since 05/21), her P:C was greater than 0.3 which likely has a false positive because it was not catheterized. Will d/c mag and jackson. 3. Hepatitis C ./ Transaminitis: Patient has never had this addressed as it was diagnosed at time of , recommended patient to see GI for treatment and follow-up 4. Opioid use disorder: Patient continued on her Subutex Valentino Ordonez MD May 22, 2017 08:07
[2017-05-22] MEDS ORDERED: FERR325T18 PO (08:09)
--- NOTE | 2017-05-22 08:10 | HHI.DS ---
Admission Date May 21, 2017 at 23:22 Admitting Diagnosis Delayed hemorrhage, anemia, possible retained products of conception Diagnosis: Brief History 21-year-old 001 who presented on 05/21/2017 after vacuum-assisted vaginal delivery on 05/17/2017 for heavy vaginal bleeding, she had an ultrasound that showed thickened endometrial stripe and cannot rule out retained products of conception, she had serial hemoglobins that were stable, bedside ultrasound by myself on hospital day 2 showed a thinner endometrial stripe however still somewhat heterogeneous, her bleeding was minimal to moderate, she was asymptomatic. On hospital day 2 year bleeding was scant, she had ablated without symptoms and felt prepared for discharge home. She had a mild range blood pressure in the ER and some transaminitis, she was given magnesium for seizure prophylaxis, however she was asymptomatic on reevaluation in the morning by myself and her transaminitis likely represents sequelae from her Hep C. Her blood pressures were normotensive throughout the rest of her stay. Discharge plan: Patient to take Augmentin BID as empiric treatment for endometritis and iron for her anemia. Follow-up plan: Patient to follow up with Dr. London in 2-3 days in the office Pt Condition on Discharge: Good Discharge Disposition: Discharge Home Discharge Instructions Diet Instructions: As Tolerated, No Restrictions Follow up Referrals: [facility] - 2-3 Days @ [facility] with Africa London MD New Medications: Amoxicillin-Clavulanate (Augmentin) 500-125 mg Tab 500 MG PO BID for Infection for 7 Days, TAB 0 Refills Ferrous Sulfate (Ferrous Sulfate) 325 Mg (65 Mg Iron) Tablet 325 MG PO BIDPC for Nutritional Supplement, #60 TAB 0 Refills Continued Medications: Buprenorphine (Buprenorphine) 8 Mg Subl 8 MG SL DAILY, TAB.SL Pnv No.95/Ferrous Fum/Folic AC ( Vitamins Tablet) 28 Mg Iron-800 Mcg Tablet 1 TAB PO DAILY Valentino Ordonez MD May 22, 2017 08:10
[2017-05-22] MEDS ORDERED: AUGM500T7 PO (08:11)
[2017-05-22 08:49] LABS: BANDS 3 % (0-6); BASOPHILS 1 % (0-2); LYMPHOCYTES 25 % (9-44); METAMYELOCYTES 1 % (0-1); MONOCYTES 7 % (0-8); MYELOCYTES 4 % (0-0); POLYS (SEG NEUTROPHILS) 59 % (16-70)
[2017-05-22 08:50] LABS: POLYCHROMASIA 2.1 % (0.0-1.9)
[2017-05-22 08:51] LABS: TOXIC GRANULATION 1+ (NORMAL)
[2017-05-22] MEDS ORDERED: SODIUM CHLORIDE 0.9% FLUSH 10 ML FLUSH IV FLUSH SCH (09:00)
[2017-05-22] MEDS ORDERED: BUPRENORPHINE HCL 8 MG SUBLINGUAL TAB SL SCH (09:00)
== END 2017-05-22 09:10 | disposition home or self-care (01) ==
LOC: NEPE 19:19 → INTOOBSV 23:22 → NEDA 23:22 → H2EB 05-22 01:03
PROVIDERS: ADMIT Obstetrics & Gynecology; ATTEND Obstetrics & Gynecology
DX: O72.2 Delayed and secondary postpartum hemorrhage (principal); R10.9 Unspecified abdominal pain; F17.210 Nicotine dependence, cigarettes, uncomplicated; F11.90 Opioid use, unspecified, uncomplicated; D72.829 Elevated white blood cell count, unspecified; B19.20 Unspecified viral hepatitis C without hepatic coma; D50.0 Iron deficiency anemia secondary to blood loss (chronic)
CPT/HCPCS: 76856; 80053; 81001; 82570; 83605; 84156; 85007; 85027; 85610; 85730; 96361; 96365; 96366; 96375; 99285; G0378; J2270; J2405; J2543; J3475; J7030; J7120